=== PATIENT | male | born 1940 | race Caucasian/White ===

== ENCOUNTER 2020-02-07 11:12 | Inpatient (IN) ==
[2020-02-07] MEDS ORDERED: IOPAMIDOL 100 ML BOTTLE IV ONE (11:13)
[2020-02-07] MEDS ORDERED: 0.9 % SODIUM CHLORIDE 1,000 ML IV ONE (11:43)
--- NOTE | 2020-02-07 11:43 | Emergency Department Note ---
Nausea/Vomiting/Diarrhea HPI - General Chief complaint: Nausea/Vomiting/Diarrhea Stated complaint: Vomiting Time Seen by Provider: 02/07/20 11:31 Source: patient Mode of arrival: ambulatory Limitations: no limitations - History of Present Illness HPI Narrative: This 79-year old patient presents emergency department chief complaint of vomiting. Patient states vomiting has been going on for 1 days. Patient states exacerbating factors are eating/drinking. Patient states ameliorating factors are nothing. Time course is acute. Patient does not report fever however he is febrile on arrival. Patient has not had history of these symptoms in the past. Pt with out sick contacts. Associated symptoms do not include distention/hematemesis/feculent vomiting/sick contacts/vertigo. Associated symptoms include nausea/diarrhea/abdominal pain. - Related Data Home Medications Medication Instructions Recorded Confirmed Diltiazem HCl [Cartia Xt] 120 mg PO BID 02/07/20 02/07/20 Diltiazem [Cardizem Cd] 240 mg PO BID 02/07/20 02/07/20 Doxazosin Mesylate [Cardura] 1 mg PO HS 02/07/20 02/07/20 Nortriptyline [Pamelor] 10 mg PO HS 02/07/20 02/07/20 Potassium Chloride [Kdur] 10 meq PO DAILY 02/07/20 02/07/20 Sennosides [Senna Laxative] 8.6 mg PO DAILY 02/07/20 02/07/20 oxyCODONE HCL [Oxycodone HCl] 5 mg PO TID 02/07/20 02/07/20 Allergies Allergy/AdvReac Type Severity Reaction Status Date / Time No Known Drug Allergies Allergy Verified 02/07/20 11:29 Review of Systems All systems ED: reviewed and negative except as stated. Past Medical History - Social History smoking status: Never smoker Physical Exam General: Alert, interactive, appropriate, patient's vital signs were assessed for hemodynamic instability specifically tachycardia or hypotension pt is only febrile at presentation Head: Atraumatic, normocephalic Eyes: Extraocular movements intact, PERRLA OP: Mucous membranes were moist, there was no erythema or swelling Neck: Trachea midline, full range of motion Chest: Symmetrical chest wall rise Cardiovascular: Patient with excellent perfusion to the extremities Extremities: Full range of motion joints, warm well perfused Neuro: Alert, oriented x3, cranial nerves II through XII grossly intact Psychiatric: Normal affect normal mood Limitations: no limitations Course Vital Signs Temperature 102.7 F H 02/07/20 11:13 Pulse Rate 93 H 02/07/20 11:13 Respiratory Rate 16 02/07/20 11:13 Blood Pressure 171/69 02/07/20 11:13 Pulse Oximetry (%) 96 02/07/20 11:13 Temperature 98.1 F 02/07/20 20:47 Pulse Rate 62 02/07/20 20:47 Respiratory Rate 16 02/07/20 20:47 Blood Pressure 123/60 02/07/20 20:47 Pulse Oximetry (%) 93 02/07/20 20:47 Nausea/Vomiting/Diarrhea - [facility] Narrative Medical decision making narrative: This 79-year-old patient presents the emergency department chief complaint of vomiting. Differential diagnosis for this issue includes intra-abdominal infection, acute gastroenteritis, gastroparesis, GERD, cyclical vomiting syndrome, cannabinoid hyperemesis syndrome, pancreatitis, hepatitis, other rare causes could include gastric outlet obstruction, bowel obstruction, and self-induced/eating disorders. Evaluation for this vomiting patient is noted to have pneumonia. Patient's flu swab was negative. CT scan of the abdomen looking for possible intra-abdominal process revealed bottoms of the lungs showing infiltrate. Dedicated chest CT was obtained which demonstrated pneumonia. Patient was febrile patient was also confused patient does have elevation of his white blood cell count patient is 79 years old. Discussed case with Dr. Lael and the consensus medical opinion is to admit the patient for ongoing evaluation and management. Patient did have some wandering baseline on his oxygenation occasionally into the 80s but not consistent with a low to suggest he needed oxygen supplementation acutely. Patient treated with IV fluids Rocephin and azithromycin his lactate was right at 2.0. - Lab Data Result diagrams: 02/07/20 11:41 02/07/20 11:41 Lab Results 02/07/20 02/07/20 02/07/20 Range/Units 11:40 11:41 11:41 WBC 16.0 H (4.50-11.00) K/mcL RBC 4.59 L (4.63-6.08) M/mcL Hgb 13.6 L (13.7-17.5) g/dL Hct 42.0 (40.1-51.0) % POC Hct (41.0-55.0) % MCV 91.5 (80.0-100.0) fL MCH 29.6 (26.0-34.0) pg MCHC 32.4 (31.0-36.0) g/dL RDW 12.7 (11.5-14.5) % Plt Count 192 (140-440) K/mcL MPV 11.6 H (7.4-10.4) fL Gran % 92.0 H (38.0-78.0) % Lymph % (Auto) 2.9 L (15.5-49.0) % [place] % (Auto) 3.9 (1.0-12.0) % Eos % (Auto) 0.9 (0.0-7.0) % Baso % (Auto) 0.3 (0.0-2.0) % Gran # 14.71 H (1.80-8.00) K/mcL Lymph # (Auto) 0.46 L (1.50-4.80) K/mcL [place] # (Auto) 0.63 (0.10-0.90) K/mcL Eos # (Auto) 0.15 (0.00-0.70) K/mcL Baso # (Auto) 0.04 (0.00-0.30) K/mcL PT (11.9-14.5) sec INR (0.9-1.1) VBG Lactic Acid 2.0 (0.5-2.0) mmol/L POC Sodium (133-145) mmol/L Sodium 135 (133-145) mmol/L POC Potassium (3.3-5.1) mmol/L Potassium 4.4 (3.3-5.1) mmol/L POC Chloride (96-108) mmol/L Chloride 97 (96-108) mmol/L Carbon Dioxide 24 (22-30) mmol/L POC Total CO2 (22-30) mmol/L Anion Gap 14.0 (8-16) POC BUN (8-23) mg/dl BUN 22 (8-23) mg/dl Creatinine 1.3 H (0.7-1.2) mg/dl POC Creatinine (0.7-1.2) mg/dl GFR Calculation 52 Glucose 161 H (70-105) mg/dL POC Glucose (70-105) mg/dL Calcium 9.1 (8.6-10.4) mg/dl POC WB Ioniz Calcium (1.16-1.32) mmol/L Total Bilirubin 0.8 (0.0-1.0) mg/dL AST 33 (0-37) U/l ALT 18 (0-40) U/l Alkaline Phosphatase 117 (39-117) U/L Total Protein 7.6 (5.9-8.4) gm/dL Albumin 4.1 (3.2-5.2) gm/dL Globulin 3.5 (2.2-3.7) gm/dL Albumin/Globulin Ratio 1.2 (1.0-2.3) Lipase 9 (7-60) U/L Urine Color Urine Appearance Urine pH (5.0-9.0) Ur Specific [place] (1.000-1.035) Urine Protein (NEG) mg/dL Urine Glucose (UA) (NEG) mg/dL Urine Ketones (NEG) mg/dL Urine Occult Blood (<0.03) mg/dL Urine Nitrate (NEG) Urine Bilirubin (NEG) mg/dL Urine Urobilinogen (NEG) mg/dL Ur Leukocyte Esterase (NEG) /uL Urine RBC (0-1) /hpf Urine WBC (0-4) /hpf Ur Squamous Epith Cells (0-4) /hpf Urine Bacteria (0) /hpf Urine Mucus (0) /hpf 02/07/20 02/07/20 02/07/20 Range/Units 11:41 12:07 12:15 WBC (4.50-11.00) K/mcL RBC (4.63-6.08) M/mcL Hgb (13.7-17.5) g/dL Hct (40.1-51.0) % POC Hct 40.0 L (41.0-55.0) % MCV (80.0-100.0) fL MCH (26.0-34.0) pg MCHC (31.0-36.0) g/dL RDW (11.5-14.5) % Plt Count (140-440) K/mcL MPV (7.4-10.4) fL Gran % (38.0-78.0) % Lymph % (Auto) (15.5-49.0) % [place] % (Auto) (1.0-12.0) % Eos % (Auto) (0.0-7.0) % Baso % (Auto) (0.0-2.0) % Gran # (1.80-8.00) K/mcL Lymph # (Auto) (1.50-4.80) K/mcL [place] # (Auto) (0.10-0.90) K/mcL Eos # (Auto) (0.00-0.70) K/mcL Baso # (Auto) (0.00-0.30) K/mcL PT 37.3 H (11.9-14.5) sec INR 3.7 H (0.9-1.1) VBG Lactic Acid (0.5-2.0) mmol/L POC Sodium 138 (133-145) mmol/L Sodium (133-145) mmol/L POC Potassium 4.4 (3.3-5.1) mmol/L Potassium (3.3-5.1) mmol/L POC Chloride 104 (96-108) mmol/L Chloride (96-108) mmol/L Carbon Dioxide (22-30) mmol/L POC Total CO2 24 (22-30) mmol/L Anion Gap (8-16) POC BUN 22 (8-23) mg/dl BUN (8-23) mg/dl Creatinine (0.7-1.2) mg/dl POC Creatinine 1.2 (0.7-1.2) mg/dl GFR Calculation Glucose (70-105) mg/dL POC Glucose 144 H (70-105) mg/dL Calcium (8.6-10.4) mg/dl POC WB Ioniz Calcium 1.09 L (1.16-1.32) mmol/L Total Bilirubin (0.0-1.0) mg/dL AST (0-37) U/l ALT (0-40) U/l Alkaline Phosphatase (39-117) U/L Total Protein (5.9-8.4) gm/dL Albumin (3.2-5.2) gm/dL Globulin (2.2-3.7) gm/dL Albumin/Globulin Ratio (1.0-2.3) Lipase (7-60) U/L Urine Color Yellow Urine Appearance Clear Urine pH 6.0 (5.0-9.0) Ur Specific [place] 1.017 (1.000-1.035) Urine Protein Neg (NEG) mg/dL Urine Glucose (UA) Negative (NEG) mg/dL Urine Ketones Neg (NEG) mg/dL Urine Occult Blood 0.03 A (<0.03) mg/dL Urine Nitrate Neg (NEG) Urine Bilirubin Neg (NEG) mg/dL Urine Urobilinogen Neg (NEG) mg/dL Ur Leukocyte Esterase Neg (NEG) /uL Urine RBC 8 H (0-1) /hpf Urine WBC 2 (0-4) /hpf Ur Squamous Epith Cells 0 (0-4) /hpf Urine Bacteria 0 (0) /hpf Urine Mucus Few (0) /hpf Disposition Pt seen by NEWS PRODUCER/PA only: No Clinical Impression: Left lower lobe pneumonia Qualifiers: Pneumonia type: due to unspecified organism Qualified Code(s): J18.9 - Pneumonia, unspecified organism Disposition: Xfer As Inpt ([facility]) Condition: Serious
--- NOTE | 2020-02-07 12:06 | XRay Report ---
CLINICAL INFORMATION: CP/dyspnea COMPARISON: 03/14/2015 FINDINGS: Moderate cardiomegaly is increased. Mediastinum is unremarkable. Upper lobe pulmonary vessels show slight redistribution. No edema or infiltrates. Mild bibasilar atelectasis noted. No effusion IMPRESSION: Borderline CHF or volume overload. Mild bibasilar atelectasis Interpreted and Authenticated by: Shiva Chang 02/07/20
[2020-02-07 12:14] LABS: POC Blood Urea Nitrogen 22 mg/dl (8-23); POC CO2 24 mmol/L (22-30); POC Calcium, Ionized 1.09 mmol/L (1.16-1.32); POC Chloride 104 mmol/L (96-108); POC Creatinine 1.2 mg/dl (0.7-1.2); POC Glucose, Random 144 mg/dL (70-105); POC Potassium 4.4 mmol/L (3.3-5.1); POC Sodium 138 mmol/L (133-145)
[2020-02-07 12:28] LABS: Basophils # (Auto) 0.04 K/mcL (0.00-0.30); Basophils % (Auto) 0.3 % (0.0-2.0); Eosinophils # (Auto) 0.15 K/mcL (0.00-0.70); Eosinophils % (Auto) 0.9 % (0.0-7.0); Hemoglobin 13.6 g/dL (13.7-17.5); Lymphocytes # (Auto) 0.46 K/mcL (1.50-4.80); Lymphocytes % (Auto) 2.9 % (15.5-49.0); Mean Cell Volume 91.5 fL (80.0-100.0); Mean Corpuscular HGB Conc 32.4 g/dL (31.0-36.0); Mean Platelet Volume 11.6 fL (7.4-10.4); Monocytes # (Auto) 0.63 K/mcL (0.10-0.90); Monocytes % (Auto) 3.9 % (1.0-12.0); Platelet Count 192 K/mcL (140-440); RBC 4.59 M/mcL (4.63-6.08); Red Cell Distribution Width 12.7 % (11.5-14.5)
[2020-02-07 12:35] LABS: ALT/SGPT 18 U/l (0-40); AST/SGOT 33 U/l (0-37); Albumin 4.1 gm/dL (3.2-5.2); Albumin/Globulin Ratio 1.2 (1.0-2.3); Alkaline Phosphatase 117 U/L (39-117); Bilirubin,Total 0.8 mg/dL (0.0-1.0); Blood Urea Nitrogen 22 mg/dl (8-23); Calcium 9.1 mg/dl (8.6-10.4); Carbon Dioxide 24 mmol/L (22-30); Chloride 97 mmol/L (96-108); Globulin 3.5 gm/dL (2.2-3.7); Glomerular Filtration Rate 52; Glucose 161 mg/dL (70-105)
[2020-02-07 13:20] LABS: Appearance,Urine CLEAR; Bacteria,Urine 0 /hpf (0); Bilirubin,Urine NEG (NEG); Color,Urine YELLOW; Glucose,Urine (UA) NEGATIVE (NEG); Ketones,Urine NEG (NEG); Leukocyte Esterase,Urine NEG /uL (NEG); Mucus,Urine FEW /hpf (0); Nitrate,Urine NEG (NEG); Protein,Urine NEG (NEG); Specific Gravity,Urine 1.017 (1.000-1.035); Urine Blood 0.03 mg/dL (<0.03); Urine RBC 8 /hpf (0-1); Urine Squamous Epithelial Cell 0 /hpf (0-4); Urine WBC 2 /hpf (0-4); Urobilinogen,Urine NEG (NEG)
[2020-02-07] MEDS ORDERED: oxyCODONE/APAP 5/325MG TABLET PO ONE (14:08)
--- NOTE | 2020-02-07 14:11 | Cat Scan Report ---
CLINICAL INFORMATION: Abdominal pain and vomiting COMPARISON: 07/09/[address] TECHNIQUE: Following enteric contrast, 80 cc of Isovue-370 were injected intravenously, and 60 seconds later, 0.625 mm helical slices were obtained from the mid heart through the subtrochanteric regions. Following reconstruction, 2.5 mm sagittal, coronal and axial reformatted images were processed and reviewed at bone, lung and soft tissue windows. Five minutes later, 0.625 mm helical slices were obtained from the mid heart through the kidneys and viewed at soft tissue windows.The exam was performed using radiation dose optimization techniques including, but not limited to, automated exposure control, adjustment of the mA and/or kV according to patient size and use of iterative reconstruction technique. FINDINGS: Lung bases show a small consolidated infiltrate, likely community-acquired pneumonia, in the posterior basilar segment left lower lobe. This is new from prior CT. no effusions. The visualized heart is grossly normal. Abdominal images show minimal fatty change of the liver, but no focal hepatic lesions. The gallbladder is surgically absent. The common bile duct is moderately dilated, 12 mm, with mild wall thickening and enhancement of the duct epithelium in the papillary region. The common bile duct was only 10 mm on the [address] 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 The prior exam, there was a mass in the pancreatic tail which has been surgically resected. The pancreas shows marked atrophy with almost total fatty replacement of the parenchyma. Both kidneys, adrenal glands, spleen are normal. The aorta is normal diameter with scattered atherosclerotic plaque. 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 The SMA, MALENA, renal and iliac arteries are widely patent. Pelvic images show prostate is decreased in size from the 2015 study. Previously, it was 5.1 x 4.7 cm. On today's exam, it is 3.8 x 4.1 cm. A prominent frond hypertrophied prostate tissue projecting from the prostate base into the urinary bladder has also decreased since previous CT. Interval effusions wall thickening urinary bladder has decreased prior CT implying improvement in chronic bladder outlet narrowing. Scattered sigmoid diverticuli noted. The remaining colon and appendix, small bowel and stomach are normal. Undigested tablet seen within the cecum. There is a 6.4 cm right inguinal hernia containing mesenteric fat and a very short segment of the proximal sigmoid colon. There is also a 3 cm right internal hernia containing only mesenteric fat. Bone windows show no osseous abnormality there are L2-3 fusion changes which appear solid. A 3.2 cm seroma is seen within [place] fascia in the periumbilical region. Patient likely had hernia surgery. IMPRESSION: 1. Moderate infiltrate in the posterior left lower lobe - suspect community-acquired pneumonia. 2. No acute intra-abdominal disease 3. 6.4 cm left inguinal hernia containing mesenteric fat and a portion of the sigmoid colon slight increase in size from previous exam. A 3 cm right femoral hernia is unchanged 4. Sigmoid diverticulosis, but no evidence of diverticulitis. 5. 3.2 cm seroma in the anterior abdominal wall in [place] fascia midline. This is likely site of prior hernia repair 6. Mild prostate enlargement. The prostate has decreased in size from 2015 presumably related to atrophy from medication use. The urinary bladder wall has decreased in thickness suggesting improvement in chronic bladder outlet narrowing. 7. Moderate dilatation of the common bile duct with thickening and enhancement of the biliary epithelium near the papilla suggesting postcholecystectomy papillary stenosis. Duct diameter has increased from the [address] Consider GI referral for possible ERCP 8. 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 Pancreas now shows marked atrophy Interpreted and Authenticated by: Shiva Chang 02/07/20
--- NOTE | 2020-02-07 17:03 | Cat Scan Report ---
CLINICAL INFORMATION: Fever and elevated white blood cell count COMPARISON: 03/20/2015 CT pulmonary angiogram TECHNIQUE: 0.625 mm axial slices were obtained from the lung apices through the bases without intravenous contrast. 2.5 mm Sagittal, coronal and axial reformatted images were processed and reviewed at bone, lung and soft tissue windows. 7 mm axial MIP images were also reconstructed to optimize pulmonary nodule detection.The exam was performed using radiation dose optimization techniques including, but not limited to, automated exposure control, adjustment of the mA and/or kV according to patient size and use of iterative reconstruction technique. FINDINGS: Pulmonary parenchymal windows show moderate patchy groundglass alveolar infiltrates within the left lower lobe with smaller predominantly groundglass infiltrates in the right lower lobe. Findings are new from the [address] The right middle and upper lobes are clear. There are no effusions. Mediastinal windows show the noncontrast thoracic aorta and pulmonary arteries are normal in diameter. There is no adenopathy in the mediastinal hilar or axillary regions. Heart is normal in size with scattered calcific plaque. Esophagus is grossly normal. The thyroid is unremarkable. Bones and soft tissues of the chest wall are unremarkable. Imaging of the upper abdomen show small amount of residual contrast within the upper collecting systems the visualized kidneys. No other abnormality. IMPRESSION: Moderate patchy groundglass/alveolar infiltrates throughout the left lower lobe with smaller, predominantly groundglass, infiltrate in the right lower lobe. Consider infection or aspiration. Interpreted and Authenticated by: Shiva Chang 02/07/20
[2020-02-07] MEDS ORDERED: cefTRIAXone 1 GM VIAL IV ONE (18:53)
[2020-02-07] MEDS ORDERED: AZITHROMYCIN 500 MG in DEXTROSE 5% IN WATER 250 ML IV ONE (18:54)
--- NOTE | 2020-02-07 19:15 | Internal Med History&Physical ---
Medical - H&P: [facility] Patient information: Note initiated : 02/07/20 at 7:11 pm Service Date, if different from initiated Date: [] Patient: Andrés Santillan a 79 y/o M admitted on for Vomiting. Chief Complaint: [] Chief complaint: Nausea vomiting and confusion History of present illness: Mr. Santillan is a 79 year old M with a history of hypertension, chronic back pain presents to the ER with symptoms of nausea and vomiting that started 6 hours prior to presentation. Patient was in baseline state of health this morning. He was in the bathroom and suddenly started experience nausea followed by a large volume emesis. He had 3-4 episodes. He has associated abdominal discomfort but denies any fever shortness of breath headache joint pain myalgia or rash. He feels to the ER for evaluation. Initial work-up was unremarkable with abdominal CT except for basilar chest infiltrate and confirmed on subsequent CT chest left-sided diffuse pneumonia. Hospitalist service was consulted after patient was started on antibiotic coverage. Initial white count 16,000, INR 3.7 At the time evaluation patient is alert and oriented. He is on room air. He was able to answer most of the questions and talk in full sentences. He denies labored breathing, chest pain, diarrhea, bloody stool. He endorses to minimal abdominal discomfort. He denies recent travel or eating uncooked meat. Review of systems A 10 point review system was performed and is negative except for ones cussed above Medical - H&P: PMH Medical history: Chronic back pain Hypertension Degenerative joint disease Social history: Lives with his son No smoking or alcoholism Medical - H&P: Meds Home Medications Medication Instructions Recorded Confirmed Type Diltiazem HCl [Cartia Xt] 120 mg PO BID 02/07/20 02/07/20 History Diltiazem [Cardizem Cd] 240 mg PO BID 02/07/20 02/07/20 History Doxazosin Mesylate [Cardura] 1 mg PO HS 02/07/20 02/07/20 History Nortriptyline [Pamelor] 10 mg PO HS 02/07/20 02/07/20 History Potassium Chloride [Kdur] 10 meq PO DAILY 02/07/20 02/07/20 History Sennosides [Senna Laxative] 8.6 mg PO DAILY 02/07/20 02/07/20 History oxyCODONE HCL [Oxycodone HCl] 5 mg PO TID 02/07/20 02/07/20 History Allergies Allergy/AdvReac Type Severity Reaction Status Date / Time No Known Drug Allergies Allergy Verified 02/07/20 11:29 Medical - H&P: Exam - Constitutional Vitals: Temp Pulse Resp BP Pulse Ox 99.8 F H 68 16 125/71 88 L 02/07/20 17:46 02/07/20 19:01 02/07/20 11:13 02/07/20 19:01 02/07/20 19:01 General appearance: no acute distress Exam: Alert oriented Nonlabored breathing Head normocephalic Oral cavity dry No ear nose discharge Neck lymphadenopathy S1-S2 occasionally irregular, ESM grade 1 Diminished breath sounds bases Abdomen soft nontender, midline prior abdominal surgery scar No joint swelling erythema or cyanosis or clubbing No lymphedema Skin no suspicious lesion Psych alert cooperative Neuro nonfocal Medical - H&P: Reslt - Labs CBC & Chem 7: 02/08/20 05:52 02/08/20 05:52 Labs: Short CBC 02/07/20 Range/Units 11:41 WBC 16.0 H (4.50-11.00) K/mcL Hgb 13.6 L (13.7-17.5) g/dL Hct 42.0 (40.1-51.0) % Plt Count 192 (140-440) K/mcL BMP 02/07/20 11:41 Sodium 135 Potassium 4.4 Chloride 97 Carbon Dioxide 24 BUN 22 Creatinine 1.3 H Glucose 161 H Calcium 9.1 Liver Function 02/07/20 Range/Units 11:41 Total Bilirubin 0.8 (0.0-1.0) mg/dL AST 33 (0-37) U/l ALT 18 (0-40) U/l Alkaline Phosphatase 117 (39-117) U/L Albumin 4.1 (3.2-5.2) gm/dL Urine 02/07/20 Range/Units 12:15 Urine Color Yellow Urine Appearance Clear Urine pH 6.0 (5.0-9.0) Ur Specific [place] 1.017 (1.000-1.035) Urine Protein Neg (NEG) mg/dL Urine Glucose (UA) Negative (NEG) mg/dL Medical - H&P: A/P (1) Left lower lobe pneumonia Current visit: Yes Status: Acute * Left lower lobe [id number] versus aspiration. Antibiotic coverage/bronchodilators/pulmonary toilet * Sepsis secondary to above. Evidence of endorgan dysfunction with altered mental status. Continue management of primary etiology. Crystalloids/pancultures/antibiotic coverage * Acute change mental status secondary to sepsis endorgan dysfunction. Continue monitoring * Abdominal pain nausea vomiting-no clear etiology. Negative abdominal imaging. Continue monitoring. * Chronic back pain continue home dose oxycodone * Hypertension continue Cardizem * Anticoagulation on Coumadin. INR therapeutic * Full code Plan * Inpatient admission, PSI score over 100 * Sepsis management guidelines * Antibiotic coverage * PT OT nutrition support * Discharge planning
[2020-02-07 20:00] LABS: INR 3.7 (0.9-1.1); Prothrombin Time 37.3 sec (11.9-14.5)
[2020-02-07] MEDS ORDERED: ACETAMINOPHEN 650 MG/65 ML BOTTLE IV PRN (21:08)
[2020-02-07] MEDS ORDERED: POLYETHYLENE GLYCOL 3350 17 GM PACKET PO PRN (21:08)
[2020-02-07] MEDS ORDERED: hydrALAZINE 20 MG/ML VIAL IV PRN (21:08)
[2020-02-07] MEDS ORDERED: IPRATROPIUM/ALBUTEROL 3 ML AMPUL.NEB NEB PRN (21:08)
[2020-02-07] MEDS ORDERED: ONDANSETRON 4 MG/2 ML VIAL IV PRN (21:08)
[2020-02-07] MEDS ORDERED: guaiFENesin/CODEINE 10 ML UDC PO PRN (21:08)
[2020-02-07] MEDS ORDERED: ONDANSETRON 4 MG ODT TABLET SL PRN (21:08)
[2020-02-07] MEDS ORDERED: MAGNESIUM SULFATE 2 GM/50 ML BAG IV PRN (21:08)
[2020-02-07] MEDS ORDERED: POTASSIUM CHLORIDE 20 MEQ PACKET PO PRN (21:08)
[2020-02-07] MEDS ORDERED: BISACODYL 10 MG SUPP.RECT PR PRN (21:08)
[2020-02-07] MEDS ORDERED: METOPROLOL TARTRATE 5 MG/5 ML VIAL IV PRN (21:08)
[2020-02-07] MEDS: 0.9 % SODIUM CHLORIDE 1,000 ML IV SCH (22:40)
[2020-02-07] MEDS: 0.9 % SODIUM CHLORIDE 10 ML SYRINGE IV SCH (22:40)
[2020-02-07] MEDS: SENNOSIDES/DOCUSATE SODIUM 1 TAB TABLET PO SCH (22:41)
[2020-02-07] MEDS: DOCUSATE SODIUM 100 MG CAPSULE PO SCH (22:41)
[2020-02-07] MEDS: MELATONIN 3 MG TABLET PO PRN (22:43)
[2020-02-08] MEDS: 0.9 % SODIUM CHLORIDE 10 ML SYRINGE IV SCH ×3 (04:26→22:32)
[2020-02-08 07:38] LABS: Hematocrit 35.3 % (40.1-51.0); Hemoglobin 11.1 g/dL (13.7-17.5); Mean Cell Volume 92.7 fL (80.0-100.0); Mean Corpuscular HGB Conc 31.4 g/dL (31.0-36.0); Mean Platelet Volume 12.5 fL (7.4-10.4); Platelet Count 121 K/mcL (140-440); RBC 3.81 M/mcL (4.63-6.08); WBC 11.7 K/mcL (4.50-11.00)
[2020-02-08 08:13] LABS: Bilirubin,Direct < 0.2 mg/dL (0.0-0.3); Chloride 104 mmol/L (96-108)
[2020-02-08 08:18] LABS: ALT/SGPT 12 U/l (0-40); AST/SGOT 25 U/l (0-37); Albumin 3.1 gm/dL (3.2-5.2); Alkaline Phosphatase 85 U/L (39-117); Bilirubin,Total 0.6 mg/dL (0.0-1.0); Blood Urea Nitrogen 17 mg/dl (8-23); Calcium 8.3 mg/dl (8.6-10.4); Carbon Dioxide 24 mmol/L (22-30); Glomerular Filtration Rate 71; Glucose 83 mg/dL (70-105); Lactate Dehydrogenase 217 U/L (94-250); Phosphorous 3.1 mg/dL (2.7-4.5); Triglycerides 61 mg/dl (<150); Uric Acid 4.1 mg/dL (2.5-8.0)
[2020-02-08 08:29] LABS: Lymphocytes % 13 % (15-49); Monocytes % (Manual) 2 % (1-12); Platelet Estimate DECREASED (NORMAL); RBC Morphology NORMAL (NORMAL); Segmented Neutrophils % 85 % (38-78)
[2020-02-08] MEDS ORDERED: cefTRIAXone 2 GM VIAL ONE (08:49)
[2020-02-08] MEDS: cefTRIAXone 2 GM in DEXTROSE 5% IN WATER 50 ML IV SCH (09:01)
[2020-02-08] MEDS: MULTIVIT,THER IRON,CA,FA & MIN 1 TABLET PO SCH (09:02)
[2020-02-08] MEDS: THIAMINE 100 MG TABLET PO SCH (09:02)
[2020-02-08] MEDS: DOCUSATE SODIUM 100 MG CAPSULE PO SCH ×2 (09:02→21:18)
[2020-02-08] MEDS ORDERED: oxyCODONE HCL 5 MG TABLET PO ONE (10:15)
[2020-02-08] MEDS: ACETAMINOPHEN 325 MG TABLET PO PRN ×2 (10:17→23:37)
[2020-02-08] MEDS: oxyCODONE HCL 5 MG TABLET PO SCH ×3 (10:20→21:17)
[2020-02-08] MEDS: AZITHROMYCIN 500 MG in DEXTROSE 5% IN WATER 250 ML IV SCH (10:20)
[2020-02-08 11:53] LABS: INR 2.8 (0.9-1.1); Prothrombin Time 30.4 sec (11.9-14.5)
[2020-02-08] MEDS: DILTIAZEM 240 MG CAP.XL.24H PO SCH ×2 (13:09→21:17)
[2020-02-08] MEDS ORDERED: WARFARIN 2.5 MG TABLET PO SCH (14:00)
--- NOTE | 2020-02-08 15:28 | Internal Med Progress Note ---
Medical - PN: Subj Patient information: Note initiated : 02/08/20 at 3:18 pm Service Date, if different from initiated Date: [] Patient: Andrés Santillan a 79 y/o M admitted on 02/07/20 for Vomiting. Chief Complaint: [] Interval history: Mr. Santillan is a 79 year old M with a history of hypertension, chronic back pain presents to the ER with symptoms of nausea and vomiting that started 6 hours prior to presentation. Patient was in baseline state of health this morning. He was in the bathroom and suddenly started experience nausea followed by a large volume emesis. He had 3-4 episodes. He has associated abdominal discomfort but denies any fever shortness of breath headache joint pain myalgia or rash. He feels to the ER for evaluation. Initial work-up was unremarkable with abdominal CT except for basilar chest infiltrate and confirmed on subsequent CT chest left-sided diffuse pneumonia. Hospitalist service was consulted after patient was started on antibiotic coverage. Initial white count 16,000, INR 3.7 At the time evaluation patient is alert and oriented. He is on room air. He was able to answer most of the questions and talk in full sentences. He denies labored breathing, chest pain, diarrhea, bloody stool. He endorses to minimal abdominal discomfort. He denies recent travel or eating uncooked meat. 02/07-patient doing well. No overnight events. No concerns per staff. No fever chills nausea vomiting. Feels a lot better. Improved white count now at 11,000. Continue antibiotic coverage. Likely discharge home in 24 hours. Met son and a family friend this morning. Discussed clinical findings/treatment plan and possible discharge in 24 hours pending clinical improvement. Patient and family agreeable. - Constitutional Vitals: Vital Signs Temp Pulse Resp BP Pulse Ox 98.1 F 54 L 16 117/56 92 02/08/20 13:00 02/08/20 13:00 02/08/20 13:00 02/08/20 13:00 02/08/20 13:00 Period Temp Pulse Resp BP Sys/Chow Pulse Ox Last 24 Hr 98.1 F-99.8 F 54-72 16-20 98-153/43-71 88-97 Intake and Output 02/08/20 02/08/20 02/08/20 05:59 13:59 21:59 Intake Total 0 50 Output Total 150 200 Balance -150 -150 Weight 157 lb 11.2 oz Patient Weight 02/09/20 05:59 Weight 157 lb 11.2 oz Intake & Output: Intake & Output 02/08/20 02/08/20 02/08/20 05:59 13:59 21:59 Intake Total 0 50 Output Total 150 200 Balance -150 -150 Weight 157 lb 11.2 oz Intake: IV 50 Rocephin 2 gm In Dextrose 5% in 50 Water 50 ml @ 100 mls/hr IV Q24H [facility] Rx#:[id number] Oral 0 Output: Void Amount 150 200 Other: Urine Appearance Clear Urine Color Bright Yellow Urine Odor Normal # Voids 1 General appearance: no acute distress Exam: Alert oriented nonlabored breathing No anxiety Nondistended abdomen Medical - PN: Obj Da - Labs CBC & Chem 7: 02/08/20 05:52 02/08/20 05:52 Labs: Abnormal Lab Results 02/08/20 02/08/20 02/08/20 11:12 05:52 05:52 WBC 11.7 H RBC 3.81 L Hgb 11.1 L Hct 35.3 L POC Hct Plt Count 121 L MPV 12.5 H Gran % Lymph % (Auto) Gran # Lymph # (Auto) Seg Neutrophils % 85 H Lymphocytes % 13 L Platelet Estimate Decreased A PT 30.4 H INR 2.8 H Creatinine Glucose POC Glucose Calcium 8.3 L POC WB Ioniz Calcium GGT 88 H Albumin 3.1 L Urine Occult Blood Urine RBC 02/07/20 02/07/20 02/07/20 12:15 12:07 11:41 WBC RBC Hgb Hct POC Hct 40.0 L Plt Count MPV Gran % Lymph % (Auto) Gran # Lymph # (Auto) Seg Neutrophils % Lymphocytes % Platelet Estimate PT 37.3 H INR 3.7 H Creatinine Glucose POC Glucose 144 H Calcium POC WB Ioniz Calcium 1.09 L GGT Albumin Urine Occult Blood 0.03 A Urine RBC 8 H 02/07/20 02/07/20 11:41 11:41 WBC 16.0 H RBC 4.59 L Hgb 13.6 L Hct POC Hct Plt Count MPV 11.6 H Gran % 92.0 H Lymph % (Auto) 2.9 L Gran # 14.71 H Lymph # (Auto) 0.46 L Seg Neutrophils % Lymphocytes % Platelet Estimate PT INR Creatinine 1.3 H Glucose 161 H POC Glucose Calcium POC WB Ioniz Calcium GGT Albumin Urine Occult Blood Urine RBC Meds: Medications Acetaminophen (Tylenol) 650 mg PO Q4-6HP PRN; Protocol PRN Reason: Per Pain Protocol/Fever > 101 Last Admin: 02/08/20 10:17 Dose: 650 mg Documented by: Albuterol/Ipratropium (Duoneb) 3 ml NEB Q4HP PRN PRN Reason: Shortness Of Breath Bisacodyl (Dulcolax) 10 mg CA Q2-3DAYS PRN PRN Reason: Constipation Diltiazem HCl (Cardizem Cd) 240 mg PO BID [facility] Last Admin: 02/08/20 13:09 Dose: 240 mg Documented by: Docusate Sodium (Colace) 100 mg PO BID [facility] Last Admin: 02/08/20 09:02 Dose: 100 mg Documented by: Guaifenesin/Codeine Phosphate (Robitussin Ac) 10 ml PO Q4HP PRN PRN Reason: Cough Hydralazine HCl (Apresoline) 10 mg IV Q4-6HP PRN PRN Reason: Hypertension Sodium Chloride (Sodium Chloride 0.9%) 1,000 mls @ 50 mls/hr IV .Q20H [facility] Stop: 02/10/20 09:07 Last Admin: 02/07/20 22:40 Dose: 50 mls/hr Documented by: Acetaminophen (Ofirmev) 650 mg in 65 mls @ 130 mls/hr IV Q6HP PRN; Protocol PRN Reason: Per Pain Protocol/Fever > 101 Last Admin: 02/08/20 03:40 Dose: 130 mls/hr Documented by: Magnesium Sulfate (Magnesium Sulfate) 2 gm in 50 mls @ 50 mls/hr IV UD PRN PRN Reason: MG = or < 1.7 Ceftriaxone Sodium 2 gm/ (Dextrose) 50 mls @ 100 mls/hr IV Q24H [facility]; Protocol Last Infusion: 02/08/20 09:30 Dose: Infused Documented by: Azithromycin 500 mg/ Dextrose 250 mls @ 250 mls/hr IV Q24H [facility]; Protocol Stop: 02/10/20 10:59 Last Admin: 02/08/20 10:20 Dose: 250 mls/hr Documented by: Iron Carb/Multivit/[place]/Folic Acid (Multivitamin W/Minerals) 1 tab PO DAILY [facility] Last Admin: 02/08/20 09:02 Dose: 1 tab Documented by: Melatonin (Melatonin 3mg Tablet) 3 mg PO HSP PRN PRN Reason: Insomnia Last Admin: 02/07/20 22:43 Dose: 3 mg Documented by: Metoprolol Tartrate (Lopressor) 5 mg IV Q5M PRN PRN Reason: Heart Rate > 140 bpm Ondansetron HCl (Zofran Odt) 4 mg SL Q4-6HP PRN; Protocol PRN Reason: Nausea And Vomiting Ondansetron HCl (Zofran) 4 mg IV Q4-6HP PRN; Protocol PRN Reason: Nausea And Vomiting Oxycodone HCl (Roxicodone) 5 mg PO TID [facility]; Protocol Last Admin: 02/08/20 10:20 Dose: Not Given Documented by: Polyethylene Glycol (Miralax) 17 gm PO DAILYP PRN PRN Reason: Constipation Potassium Chloride (Klor-Con) 40 meq PO DAILYP PRN PRN Reason: K+ < 3.5 Senna/Docusate Sodium (Senna Plus Tablet) 1 tab PO HS [facility] Last Admin: 02/07/20 22:41 Dose: 1 tab Documented by: Sodium Chloride (Saline Flush) 10 ml IV Q8 [facility] Last Admin: 02/08/20 04:26 Dose: Not Given Documented by: Thiamine HCl (Vitamin B1) 100 mg PO DAILY [facility] Last Admin: 02/08/20 09:02 Dose: 100 mg Documented by: Warfarin Sodium (Coumadin Per Pharmacy) 1 order PO DAILY@1400 [facility] Warfarin Sodium (Coumadin) 2.5 mg PO TODAY@1400 [facility] Stop: 02/08/20 16:00 Medical - PN: A/P - Time Spent With Patient Total time spent is greater than 50% in coordination of care (as documented) at patient's floor/unit and/or counseling patient: 25 - 35 minutes (1) Left lower lobe pneumonia Status: Acute Assessment and plan: * Left lower lobe iyhpfskxx-rzmetgrji-vxhzbrcn versus aspiration. Clinical improvement noted on antibiotic coverage/bronchodilators/pulmonary toilet * Sepsis secondary to above. Clinically improved with downtrending white count. Improved mental status change. * Acute change in mental status resolved and back to baseline * Abdominal pain nausea vomiting-resolved. No clear etiology. Negative abdominal imaging. * Chronic back pain continue home dose oxycodone * Hypertension continue Cardizem * Anticoagulation on Coumadin. INR therapeutic * Full code Plan * Continue antibiotic coverage * Likely discharge in 24 hours * PT OT nutrition support Current Visit: Yes Medical - PN: Qual - VTE Deep Vein Thrombosis/Pulmonary Embolism Present on Admission: No
[2020-02-08] MEDS: 0.9 % SODIUM CHLORIDE 1,000 ML IV SCH ×2 (19:15→19:56)
[2020-02-08] MEDS: SENNOSIDES/DOCUSATE SODIUM 1 TAB TABLET PO SCH (21:17)
[2020-02-08] MEDS: MELATONIN 3 MG TABLET PO PRN (21:18)
[2020-02-09] MEDS: ACETAMINOPHEN 325 MG TABLET PO PRN (04:03)
[2020-02-09] MEDS: 0.9 % SODIUM CHLORIDE 10 ML SYRINGE IV SCH (05:00)
--- NOTE | 2020-02-09 06:38 | XRay Report ---
CLINICAL INFORMATION: Follow up CHF COMPARISON: 02/07/2020 FINDINGS: Heart as returned to normal in size. Mediastinum and pulmonary vessels are unremarkable. Lungs are clear. No effusions. IMPRESSION: Resolution CHF. Negative exam Interpreted and Authenticated by: Shiva Chang 02/09/20
[2020-02-09 06:46] LABS: Hematocrit 38.2 % (40.1-51.0); Hemoglobin 12.2 g/dL (13.7-17.5); Mean Cell Volume 91.6 fL (80.0-100.0); Mean Corpuscular HGB Conc 31.9 g/dL (31.0-36.0); Mean Platelet Volume 11.6 fL (7.4-10.4); Platelet Count 158 K/mcL (140-440); RBC 4.17 M/mcL (4.63-6.08); Red Cell Distribution Width 12.9 % (11.5-14.5); WBC 8.2 K/mcL (4.50-11.00)
[2020-02-09 07:27] LABS: INR 1.9 (0.9-1.1); Prothrombin Time 22.2 sec (11.9-14.5)
[2020-02-09 07:29] LABS: ALT/SGPT 11 U/l (0-40); AST/SGOT 24 U/l (0-37); Albumin 3.5 gm/dL (3.2-5.2); Albumin/Globulin Ratio 1.1 (1.0-2.3); Alkaline Phosphatase 86 U/L (39-117); Bilirubin,Direct < 0.2 mg/dL (0.0-0.3); Bilirubin,Total 0.5 mg/dL (0.0-1.0); Blood Urea Nitrogen 16 mg/dl (8-23); Calcium 8.6 mg/dl (8.6-10.4); Carbon Dioxide 24 mmol/L (22-30); Chloride 101 mmol/L (96-108); Globulin 3.1 gm/dL (2.2-3.7); Glomerular Filtration Rate 71; Glucose 91 mg/dL (70-105); Lactate Dehydrogenase 204 U/L (94-250); Phosphorous 3.1 mg/dL (2.7-4.5); Triglycerides 63 mg/dl (<150); Uric Acid 3.9 mg/dL (2.5-8.0)
[2020-02-09 08:20] LABS: Eosinophils % (Manual) 1 % (0-7); Lymphocytes % 20 % (15-49); Monocytes % (Manual) 3 % (1-12); Platelet Estimate NORMAL (NORMAL); RBC Morphology NORMAL (NORMAL); Segmented Neutrophils % 76 % (38-78)
--- NOTE | 2020-02-09 08:52 | Discharge Summary ---
Medical - DS: Prov Patient information: Note initiated : 02/09/20 at 8:51 am Service Date, if different from initiated Date: [] Patient: Andrés Santillan 79 y/o M admitted on 02/07/20 for Vomiting. Chief Complaint: [] Date of admission: 02/07/20 20:27 Discharge date: 02/09/20 Consults: 02/07/20 Consult to Physician [CONS] Stat Comment: Consulting Provider: Alvarado Lucas Reason For Exam: Physician to Consult Medical - DS: Meds - Discharge Medications Prescriptions: Cefdinir 300 mg PO BID #10 cap Transmission Status: Received by [facility] [address] [place] [address] Active and Home Medications: Home Medications Diltiazem [Cardizem Cd] 240 mg PO BID 02/07/20 [History Confirmed 02/07/20 Last Taken 02/06/20 08:00] Doxazosin Mesylate [Cardura] 1 mg PO HS 02/07/20 [History Confirmed 02/07/20 Last Taken Unknown] Nortriptyline [Pamelor] 10 mg PO HS 02/07/20 [History Confirmed 02/07/20 Last Taken 02/06/20 20:00] Potassium Chloride [Kdur] 10 meq PO DAILY 02/07/20 [History Confirmed 02/07/20 Last Taken 02/06/20 08:00] Sennosides [Senna Laxative] 8.6 mg PO DAILY 02/07/20 [History Confirmed 02/07/20 Last Taken 02/06/20 20:00] Finasteride [Proscar] 5 mg PO DAILY 02/08/20 [History Confirmed 02/08/20 Last Taken Unknown] Ondansetron [Zofran ODT] 4 mg SL Q4-6HP PRN 02/08/20 [History Confirmed 02/08/20 Last Taken Unknown] Simvastatin [Zocor] 20 mg PO Q48H 02/08/20 [History Confirmed 02/08/20 Last Taken Unknown] Warfarin [Coumadin] 5 mg PO .COMPLEX 02/08/20 [History Confirmed 02/08/20 Last Taken Unknown] Zolpidem [Ambien] 10 mg PO Q48H 02/08/20 [History Confirmed 02/08/20 Last Taken Unknown] fentaNYL [Duragesic] 100 mcg TOPICAL Q72H 02/08/20 [History Confirmed 02/08/20 Last Taken Unknown] oxyCODONE HCL [Oxycodone HCl] 20 mg PO TID 02/08/20 [History Confirmed 02/08/20 Last Taken Unknown] traZODone HCL [Desyrel] 50 mg PO HS 02/08/20 [History Confirmed 02/08/20 Last Taken Unknown] Cefdinir 300 mg PO BID #10 cap 02/09/20 [Rx Last Taken Unknown] Medical - DS: Hosp Hospital Course: Discharge diagnosis * Left lower lobe zuktxmjfy-vllhdxoyl-uoidvmpg clinically improved on antibiotic coverage/bronchodilators/pulmonary toilet * Sepsis secondary to above. Clinically improved with normalization of white count. Stable hemodynamics. Discharging on oral antibiotics * Acute change in mental status-clinically resolved * Abdominal pain nausea vomiting-clinically resolved no clear etiology. Negative abdominal imaging. * Chronic back pain continue home dose oxycodone * Hypertension continue Cardizem * Anticoagulation on Coumadin. INR therapeutic Brief hospital course Mr. Santillan is a 79 year old M with a history of hypertension, chronic back pain presents to the ER with symptoms of nausea and vomiting that started 6 hours prior to presentation. Patient was in baseline state of health this morning. He was in the bathroom and suddenly started experience nausea followed by a large volume emesis. He had 3-4 episodes. He has associated abdominal discomfort but denies any fever shortness of breath headache joint pain myalgia or rash. He feels to the ER for evaluation. Initial work-up was unremarkable with abdominal CT except for basilar chest infiltrate and confirmed on subsequent CT chest left-sided diffuse pneumonia. Hospitalist service was consulted after patient was started on antibiotic coverage. Initial white count 16,000, INR 3.7 At the time evaluation patient is alert and oriented. He is on room air. He was able to answer most of the questions and talk in full sentences. He denies labored breathing, chest pain, diarrhea, bloody stool. He endorses to minimal abdominal discomfort. He denies recent travel or eating uncooked meat. 02/07-patient doing well. No overnight events. No concerns per staff. No fever chills nausea vomiting. Feels a lot better. Improved white count now at 11,000. Continue antibiotic coverage. Likely discharge home in 24 hours. Met son and a family friend this morning. Discussed clinical findings/treatment plan and possible discharge in 24 hours pending clinical improvement. Patient and family agreeable. 02/08-patient doing well. No overnight events. No concerns per staff. Continue antibiotic for additional 5 days. Follow-up primary care physician in 5 to 7 days. Discharge diagnosis: . - Time Spent with Patient Total time spent providing and/or coordinating discharge services: Greater than 30 minutes Medical - DS: Exam - Constitutional Vitals: Vital Signs Temp Pulse Resp BP BP Pulse Ox 02/09/20 04:01 98.2 F 59 L 12 153/76 91 02/08/20 23:33 98.9 F 61 12 171/75 91 02/08/20 19:06 98.5 F 68 12 149/68 92 02/08/20 13:00 98.1 F 54 L 16 117/56 92 02/08/20 09:00 98.5 F 72 16 144/66 90 Intake and Output 02/08/20 02/09/20 02/09/20 21:59 05:59 13:59 Intake Total 1000 300 Output Total 525 125 Balance 475 175 Intake: IV 1000 Sodium Chloride 0.9% 1,000 ml @ 1000 50 mls/hr IV .Q20H [facility] Rx#: [id number] Oral 300 Output: Void Amount 525 125 Other: Urine Appearance Clear Urine Color Bright Yellow Urine Odor Normal Weight 155 lb 9.6 oz Medical - DS: Data Labs on day of discharge: Labs from last 24 hours 02/09/20 02/09/20 02/09/20 05:13 05:13 05:13 WBC 8.2 RBC 4.17 L Hgb 12.2 L Hct 38.2 L MCV 91.6 MCH 29.3 MCHC 31.9 RDW 12.9 Plt Count 158 MPV 11.6 H Total Counted 100 Seg Neutrophils % 76 Band Neutrophils % Not Reportable Lymphocytes % 20 Monocytes % (Manual) 3 Eosinophils % (Manual) 1 Platelet Estimate Normal RBC Morphology Normal PT 22.2 H INR 1.9 H Sodium 137 Potassium 4.1 Chloride 101 Carbon Dioxide 24 Anion Gap 12.0 BUN 16 Creatinine 1.0 GFR Calculation 71 Glucose 91 Uric Acid 3.9 Calcium 8.6 Phosphorus 3.1 Magnesium 1.9 Total Bilirubin 0.5 Direct Bilirubin < 0.2 GGT 88 H AST 24 ALT 11 Alkaline Phosphatase 86 Lactate Dehydrogenase 204 Total Protein 6.6 Albumin 3.5 Globulin 3.1 Albumin/Globulin Ratio 1.1 Triglycerides 63 02/08/20 11:12 WBC RBC Hgb Hct MCV MCH MCHC RDW Plt Count MPV Total Counted Seg Neutrophils % Band Neutrophils % Lymphocytes % Monocytes % (Manual) Eosinophils % (Manual) Platelet Estimate RBC Morphology PT 30.4 H INR 2.8 H Sodium Potassium Chloride Carbon Dioxide Anion Gap BUN Creatinine GFR Calculation Glucose Uric Acid Calcium Phosphorus Magnesium Total Bilirubin Direct Bilirubin GGT AST ALT Alkaline Phosphatase Lactate Dehydrogenase Total Protein Albumin Globulin Albumin/Globulin Ratio Triglycerides Preliminary micro results at discharge 02/07/20 11:55 Blood Culture - Preliminary Blood 02/07/20 11:50 Blood Culture - Preliminary Blood Medical - DS: A/P - Patient/Caregiver Discharge Instructions Activity: increase activity as tolerated Diet: Regular Diet Additional Instructions: Abx for 5 days f/u PCP in 7 days Prescriptions: Cefdinir 300 mg PO BID #10 cap Transmission Status: Received by [facility] - Problem Maintenance (1) Left lower lobe pneumonia Status: Acute Qualifiers: Pneumonia type: due to unspecified organism Qualified Code(s): J18.9 - Pneumonia, unspecified organism - Follow up Plan Disposition: Home, Self-Care Prognosis: Fair Rehab Potential: Fair I certify that the patient requires SNF services: No Overall status at discharge: patient is progressing back to baseline Medical - DS: Qual - VTE Deep Vein Thrombosis/Pulmonary Embolism Present on Admission: No
[2020-02-09] MEDS: oxyCODONE HCL 5 MG TABLET PO SCH (09:14)
[2020-02-09] MEDS: cefTRIAXone 2 GM in DEXTROSE 5% IN WATER 50 ML IV SCH (09:14)
[2020-02-09] MEDS: MULTIVIT,THER IRON,CA,FA & MIN 1 TABLET PO SCH (09:15)
[2020-02-09] MEDS: THIAMINE 100 MG TABLET PO SCH (09:15)
[2020-02-09] MEDS: DOCUSATE SODIUM 100 MG CAPSULE PO SCH (09:15)
[2020-02-09] MEDS: DILTIAZEM 240 MG CAP.XL.24H PO SCH (09:15)
[2020-02-09] MEDS: AZITHROMYCIN 500 MG in DEXTROSE 5% IN WATER 250 ML IV SCH (09:54)
[2020-02-09] MEDS ORDERED: WARFARIN 5 MG TABLET PO SCH (14:00)
== END 2020-02-09 11:20 | disposition home or self-care (01) | DRG 871 ==
LOC: ED 11:12 → MEDSUR 20:27
PROVIDERS: ADMIT Internal Medicine; ATTEND Internal Medicine

== ENCOUNTER 2021-08-20 18:10 | Inpatient (IN) ==
--- NOTE | 2021-08-20 18:23 | Emergency Department Note ---
HPI General Chief complaint: Fever Stated complaint: weakness/fever Time Seen by Provider: 08/20/21 18:22 Source: patient Mode of arrival: EMS Limitations: no limitations History of Present Illness HPI Narrative: Narrative: The patient is an 81-year-old male who presents with a chief complaint of cough and fever. The patient states that he did receive both doses of his Covid vaccine but did not receive a flu vaccine. Related Data Home Medications Medication Instructions Recorded Confirmed diltiazem HCl 240 mg PO BID 02/07/20 02/07/20 doxazosin 1 mg PO HS 02/07/20 02/07/20 nortriptyline 10 mg PO HS 02/07/20 02/07/20 potassium chloride 10 meq PO DAILY 02/07/20 02/07/20 sennosides 8.6 mg PO DAILY 02/07/20 02/07/20 fentanyl 100 mcg TOPICAL Q72H 02/08/20 02/08/20 finasteride 5 mg PO DAILY 02/08/20 02/08/20 ondansetron 4 mg SL Q4-6HP PRN 02/08/20 02/08/20 oxycodone 20 mg PO TID 02/08/20 02/08/20 simvastatin 20 mg PO Q48H 02/08/20 02/08/20 trazodone 50 mg PO HS 02/08/20 02/08/20 warfarin 5 mg PO .COMPLEX 02/08/20 02/08/20 zolpidem 10 mg PO Q48H 02/08/20 02/08/20 Previous Rx's Medication Instructions Recorded cefdinir 300 mg PO BID #10 cap 02/09/20 Allergies Allergy/AdvReac Type Severity Reaction Status Date / Time No Known Drug Allergies Allergy Verified 08/20/21 18:20 Review of Systems ROS ROS Narrative: Narrative: All systems ED: reviewed and negative except as stated. [facility] Narrative Patient History Narrative: Narrative: Medical/Surgical/Family History All Active Problems (Updated 08/20/21 @ 21:57 by Braeden Almendarez MD) Delirium (Acute) Atrial fibrillation (Acute) BPH (benign prostatic hyperplasia) (Acute) Stage 1 acute kidney injury (Acute) Community acquired pneumonia (Acute) Left lower lobe pneumonia (Acute) Pneumonia (Acute) Influenza B (Acute) RADHA (acute kidney injury) (Acute) Social History Smoking Status: Former smoker Exam Narrative Narrative: Narrative: General Limitations: no limitations General appearance: Present alert Head Head: Present atraumatic and normocephalic Eye Eye: Present normal appearance, PERRL and EOMI ENT ENT: Present normal exam, normal oropharynx and mucous membranes moist Neck Neck: Present normal inspection, full ROM and trachea midline Chest Chest: Present normal inspection and symmetric chest wall rise Respiratory Respiratory: Present normal lung sounds bilaterally Cardiovascular Cardiovascular: Present regular rate and normal rhythm Adbominal Abdominal: Present soft and normal bowel sounds; Absent tenderness, guarding, rebound and organomegaly Extremities Extremities: Present normal inspection and full ROM; Absent tenderness Back Back: Present normal inspection and full ROM; Absent tenderness Neurological Neurological: Present alert, oriented X3, CN II-XII intact, normal gait, motor sensory deficit and reflexes normal Psychiatric Psychiatric: Present normal affect Skin Skin: Present warm (WNL); Absent rash Course Course Course Narrative: Patient's chest x-ray shows right lower lobe pneumonia. He is hypoxic on arrival is 86% on room air he is on 4 L of oxygen at 96%. He is also flu be positive. Patient will require admission. EKG shows a rate of 58, normal axis, no STEMI, nonspecific EKG. Vital Signs Vital signs: Vital Signs Temperature 102.5 F H 08/20/21 18:11 Pulse Rate 71 08/20/21 18:11 Respiratory Rate 14 08/20/21 18:11 Blood Pressure 105/73 08/20/21 18:11 Pulse Oximetry (%) 87 L 08/20/21 18:11 Temperature 102.5 F H 08/20/21 18:11 Pulse Rate 55 L 08/20/21 21:22 Respiratory Rate 17 08/20/21 21:22 Blood Pressure 79/58 08/20/21 21:22 Pulse Oximetry (%) 92 08/20/21 21:22 [facility] MDM Narrative Medical decision making narrative: Narrative: I spoke with the hospitalist, Dr. Almendarez, who has agreed to admit this patient. Lab Data Result diagrams: 08/20/21 19:50 08/20/21 19:50 Labs: Lab Results 08/20/21 08/20/21 08/20/21 Range/Units 19:40 19:50 19:50 WBC 9.6 (4.5-11.0) K/mcL RBC 4.68 (4.63-6.08) M/mcL Hgb 14.0 (13.7-17.5) g/dL Hct 42.2 (40.1-51.0) % MCV 90.2 (80.0-100.0) fL MCH 29.9 (26.0-34.0) pg MCHC 33.2 (31.0-36.0) g/dL RDW 13.0 (11.5-14.5) % Plt Count 202 (140-440) K/mcL MPV 10.3 (7.4-10.4) fL Neut % (Auto) 82.1 H (38.0-78.0) % Lymph % (Auto) 11.5 L (15.5-49.0) % [place] % (Auto) 5.9 (1.0-12.0) % Eos % (Auto) 0.1 (0.0-7.0) % Baso % (Auto) 0.4 (0.0-2.0) % Lymph # (Auto) 1.11 L (1.50-4.80) K/mcL [place] # (Auto) 0.57 (0.10-0.90) K/mcL Eos # (Auto) 0.01 (0.00-0.70) K/mcL Baso # (Auto) 0.04 (0.00-0.30) K/mcL Absolute Neutrophils 7.90 (1.80-8.00) K/mcL PT 30.1 H (11.9-14.5) sec INR 2.7 H (0.9-1.1) APTT 42.5 H (20.0-37.0) sec VBG Lactic Acid 1.0 (0.5-2.0) mmol/L Sodium (133-145) mmol/L Potassium (3.3-5.1) mmol/L Chloride (96-108) mmol/L Carbon Dioxide (22-30) mmol/L Anion Gap (8.0-16.0) BUN (8-23) mg/dL Creatinine (0.7-1.2) mg/dL GFR Calculation Glucose (70-105) mg/dL Calcium (8.6-10.4) mg/dL Magnesium (1.6-2.5) mg/dL Total Bilirubin (0.1-1.0) mg/dL AST (<40) U/L ALT (<40) U/L Alkaline Phosphatase (39-117) U/L Total Creatine Kinase (24-195) U/L Troponin T (<0.03) ng/mL NT-Pro-B Natriuret Pep (<450.0) pg/mL Total Protein (5.9-8.4) gm/dL Albumin (3.2-5.2) gm/dL Globulin (2.2-3.7) gm/dL Albumin/Globulin Ratio (1.0-2.3) Lipase (7-60) U/L Procalcitonin (<0.10) ng/mL 08/20/21 08/20/21 08/20/21 Range/Units 19:50 19:50 19:50 WBC (4.5-11.0) K/mcL RBC (4.63-6.08) M/mcL Hgb (13.7-17.5) g/dL Hct (40.1-51.0) % MCV (80.0-100.0) fL MCH (26.0-34.0) pg MCHC (31.0-36.0) g/dL RDW (11.5-14.5) % Plt Count (140-440) K/mcL MPV (7.4-10.4) fL Neut % (Auto) (38.0-78.0) % Lymph % (Auto) (15.5-49.0) % [place] % (Auto) (1.0-12.0) % Eos % (Auto) (0.0-7.0) % Baso % (Auto) (0.0-2.0) % Lymph # (Auto) (1.50-4.80) K/mcL [place] # (Auto) (0.10-0.90) K/mcL Eos # (Auto) (0.00-0.70) K/mcL Baso # (Auto) (0.00-0.30) K/mcL Absolute Neutrophils (1.80-8.00) K/mcL PT (11.9-14.5) sec INR (0.9-1.1) APTT (20.0-37.0) sec VBG Lactic Acid (0.5-2.0) mmol/L Sodium 140 (133-145) mmol/L Potassium 4.4 (3.3-5.1) mmol/L Chloride 104 (96-108) mmol/L Carbon Dioxide 22 (22-30) mmol/L Anion Gap 14.0 (8.0-16.0) BUN 29 H (8-23) mg/dL Creatinine 2.0 H (0.7-1.2) mg/dL GFR Calculation 30 Glucose 124 H (70-105) mg/dL Calcium 8.6 (8.6-10.4) mg/dL Magnesium 1.9 (1.6-2.5) mg/dL Total Bilirubin 0.4 (0.1-1.0) mg/dL AST 32 (<40) U/L ALT 9 (<40) U/L Alkaline Phosphatase 105 (39-117) U/L Total Creatine Kinase 769 H (24-195) U/L Troponin T 0.02 (<0.03) ng/mL NT-Pro-B Natriuret Pep 975.2 H (<450.0) pg/mL Total Protein 6.9 (5.9-8.4) gm/dL Albumin 3.4 (3.2-5.2) gm/dL Globulin 3.5 (2.2-3.7) gm/dL Albumin/Globulin Ratio 1.0 (1.0-2.3) Lipase 15 (7-60) U/L Procalcitonin 0.10 H (<0.10) ng/mL ED POC Tests ED POC Tests: DIOR - Influenza A Negative DIOR - Influenza B Positive DIOR - SARS Antigen Negative Discharge Plan Patient/Caregiver Discharge Instructions Pt seen by [employer]/PA only: No Clinical Impression: Influenza B, RADHA (acute kidney injury) Pneumonia Qualifiers: Pneumonia type: due to unspecified organism Laterality: right Lung location: lower lobe of lung Qualified Code(s): J18.9 - Pneumonia, unspecified organism Patient Disposition: Xfer As Inpt ([facility]) Condition: Serious Follow up with: Nicola Canseco DO [Primary Care Provider] - Prescriptions: No Action sennosides 8.6 MG tablet 8.6 mg PO DAILY RF: 0 doxazosin 1 MG tablet 1 mg PO HS RF: 0 diltiazem HCl 240 MG capsule,extended release 24hr 240 mg PO BID RF: 0 potassium chloride 10 MEQ tablet 10 meq PO DAILY RF: 0 nortriptyline 10 MG capsule 10 mg PO HS RF: 0 fentanyl 100 MCG patch 100 mcg topical Q72H RF: 0 simvastatin 20 MG tablet 20 mg PO Q48H RF: 0 warfarin 5 MG tablet 5 mg PO .COMPLEX RF: 0 zolpidem 10 MG tablet 10 mg PO Q48H RF: 0 ondansetron 4 MG tablet 4 mg SL Q4-6HP PRN (Reason: Nausea) RF: 0 finasteride 5 MG tablet 5 mg PO DAILY RF: 0 oxycodone 20 MG tablet 20 mg PO TID RF: 0 trazodone 50 MG tablet 50 mg PO HS RF: 0 cefdinir 300 MG capsule 300 mg PO BID Qty: 10 RF: 0
--- NOTE | 2021-08-20 18:57 | XRay Report ---
INDICATION: cough fever TECHNIQUE: AP portable semiupright chest x-ray COMPARISON: Previous chest x-rays dated 02/09/2020, 02/07/2020 FINDINGS: Lungs:Right-sided infiltrates are predominantly peripheral. Left lung is clear. Infiltrates are nonspecific but consistent with pneumonia and covid pneumonia is possible Heart, vascular:No significant cardiomegaly. Pulmonary vascularity is normal. No pulmonary edema or pulmonary congestion Mediastinum, crissy:No mediastinal widening. No hilar mass Pleura:No pleural fluid. No pleural-based mass or calcification Skeletal:Negative. IMPRESSION: 1. Right-sided pulmonary parenchymal infiltrates 2. Findings are consistent with pneumonia and covid pneumonia is possible Interpreted and Authenticated by: Shiva Baird 08/20/21
[2021-08-20] MEDS ORDERED: DEXAMETHASONE 10 MG/ML VIAL IV ONE (19:13)
[2021-08-20] MEDS ORDERED: OSELTAMIVIR PHOSPHATE 75 MG CAPSULE PO ONE (19:13)
[2021-08-20] MEDS ORDERED: 0.9 % SODIUM CHLORIDE 1,000 ML IV ONE ×2 (19:13→20:52)
[2021-08-20] MEDS ORDERED: AZITHROMYCIN 500 MG in DEXTROSE 5% IN WATER 250 ML IV ONE (19:13)
[2021-08-20] MEDS ORDERED: cefTRIAXone 1 GM in DEXTROSE 5% IN WATER 50 ML IV SCH ×3 (19:15→23:22)
[2021-08-20 20:38] LABS: Basophils # (Auto) 0.04 K/mcL (0.00-0.30); Basophils % (Auto) 0.4 % (0.0-2.0); Eosinophils # (Auto) 0.01 K/mcL (0.00-0.70); Eosinophils % (Auto) 0.1 % (0.0-7.0); Hematocrit 42.2 % (40.1-51.0); Lymphocytes # (Auto) 1.11 K/mcL (1.50-4.80); Lymphocytes % (Auto) 11.5 % (15.5-49.0); Mean Cell Volume 90.2 fL (80.0-100.0); Mean Corpuscular HGB Conc 33.2 g/dL (31.0-36.0); Mean Platelet Volume 10.3 fL (7.4-10.4); Monocytes # (Auto) 0.57 K/mcL (0.10-0.90); Monocytes % (Auto) 5.9 % (1.0-12.0); Neutrophils % (Auto) 82.1 % (38.0-78.0); Platelet Count 202 K/mcL (140-440); RBC 4.68 M/mcL (4.63-6.08); WBC 9.6 K/mcL (4.5-11.0)
[2021-08-20 20:52] LABS: INR 2.7 (0.9-1.1); Partial Thromboplastin Time 42.5 sec (20.0-37.0); Prothrombin Time 30.1 sec (11.9-14.5)
[2021-08-20 21:02] LABS: proBNP 975.2 pg/mL (<450.0)
[2021-08-20 21:04] LABS: ALT/SGPT 9 U/L (<40); AST/SGOT 32 U/L (<40); Albumin 3.4 gm/dL (3.2-5.2); Alkaline Phosphatase 105 U/L (39-117); Bilirubin,Total 0.4 mg/dL (0.1-1.0); Blood Urea Nitrogen 29 mg/dL (8-23); Calcium 8.6 mg/dL (8.6-10.4); Carbon Dioxide 22 mmol/L (22-30); Chloride 104 mmol/L (96-108); Creatine Kinase 769 U/L (24-195); Globulin 3.5 gm/dL (2.2-3.7); Glomerular Filtration Rate 30; Glucose 124 mg/dL (70-105)
--- NOTE | 2021-08-20 21:53 | Internal Med History&Physical ---
HPI History of Present Illness Patient information: Note initiated : 08/20/21 at 9:50 pm Service Date, if different from initiated Date: [] Patient: Andrés Santillan a 81 y/o M admitted on for weakness/fever. Chief Complaint: [community acquired pneumonia and influenza B] History of present illness: Mr. Santillan is a 81 year old M history of atrial fibrillation's on anticoagulation therapy, BPH, presenting with 1 day history of altered mental status and general body weakness. Patient is vaccinated against Covid pneumonia. Patient is not vaccinated against influenza. Patient denies any recent travel or sick contact. Patient was in his usual state of health until earlier this morning when he was told by his family that he had acute onset altered mental status. He is also committing of general body weakness. He denies any shortness of breath. He denies any cough sputum production or respiratory wheezings. He denies any fever, shaking chills, or diaphoresis. He denies any change in appetite. He denies any GI symptoms such as nausea, vo miting, diarrhea, or constipation's. He denies any muscle cramps or muscle aches. He denies any headaches or lightheadedness. Vital signs at ED presentation significant for oxygen saturations in the high 80s on room air, as well as soft blood pressure 70s over 50s mmHg. labs significant for lack of leukocytosis with WBC 9.6. Serum lactic acid 1.0. Serum creatinine level 2.0 with baseline 1.0. Covid screening negative. Influenza B positive. Chest x- ray significant for right-sided pulmonary infiltrates. Constitutional Constitutional: Present weakness; Absent chills, excessive sweating, fatigue and fever(s) EENT Eyes: Absent blurry vision, change in vision, loss of vision and other visual disturbances Ears: Absent decreased hearing and tinnitus Nose, mouth and throat: Absent abnormal hearing, dry mouth, headache(s), nasal congestion and sore throat Cardiovascular Cardiovascular: Absent chest pain, chest pain at rest, edema, irregular heart rhythm and palpatations Respiratory Respiratory: Absent cough, dyspnea and wheezing Gastrointestinal Gastrointestinal: Absent abdominal pain, constipation, diarrhea, nausea and vomiting Musculoskeletal Musculoskeletal: Absent back pain, deformity, limited range of motion, muscle cramps, muscle weakness and numbness Integumentary Integumentary: Absent lesions, rash and wounds Neurological Neurological: Absent focal weakness, headache(s) and numbness Additional comments: altered mental status Psychiatric Psychiatric: Absent anxiety, depression and hallucinations PFSH PFSH All Active Problems (Updated 08/20/21 @ 21:57 by Braeden Almendarez MD) Delirium (Acute) Atrial fibrillation (Acute) BPH (benign prostatic hyperplasia) (Acute) Stage 1 acute kidney injury (Acute) Community acquired pneumonia (Acute) Left lower lobe pneumonia (Acute) Pneumonia (Acute) Influenza B (Acute) RADHA (acute kidney injury) (Acute) MEDS/ALLERGIES Home Medications and Allergies Home Medications Medication Instructions Recorded Confirmed Type diltiazem HCl 240 mg PO BID 02/07/20 02/07/20 History doxazosin 1 mg PO HS 02/07/20 02/07/20 History nortriptyline 10 mg PO HS 02/07/20 02/07/20 History potassium chloride 10 meq PO DAILY 02/07/20 02/07/20 History sennosides 8.6 mg PO DAILY 02/07/20 02/07/20 History fentanyl 100 mcg TOPICAL Q72H 02/08/20 02/08/20 History finasteride 5 mg PO DAILY 02/08/20 02/08/20 History ondansetron 4 mg SL Q4-6HP PRN 02/08/20 02/08/20 History oxycodone 20 mg PO TID 02/08/20 02/08/20 History simvastatin 20 mg PO Q48H 02/08/20 02/08/20 History trazodone 50 mg PO HS 02/08/20 02/08/20 History warfarin 5 mg PO .COMPLEX 02/08/20 02/08/20 History zolpidem 10 mg PO Q48H 02/08/20 02/08/20 History cefdinir 300 mg PO BID #10 cap 02/09/20 Rx Allergies Allergy/AdvReac Type Severity Reaction Status Date / Time No Known Drug Allergies Allergy Verified 08/20/21 18:20 EXAM Constitutional Vitals: Temp Pulse Resp BP Pulse Ox 39.2 C H 55 L 17 79/58 92 08/20/21 18:11 08/20/21 21:22 08/20/21 21:22 08/20/21 21:22 08/20/21 21:22 General appearance: cooperative and no acute distress Head Head exam: Present atraumatic and normocephalic Eye Eye exam: Present EOMI and PERRL ENT ENT exam: Present mucous membranes moist, normal exam and normal external ear exam Additional comments: Nasal cannula Neck Neck exam: Present normal inspection; Absent lymphadenopathy, tenderness and thyromegaly Respiratory Respiratory exam: Present rhonchi; Absent accessory muscle use, respiratory distress and wheezes Cardiovascular Cardiovascular exam: Present bradycardia and irregular rhythm; Absent JVD GI/Abdominal GI/Abdominal exam: Present normal bowel sounds and soft; Absent organomegaly and tenderness Rectal Rectal exam: Present deferred Extremities Exam Extremities exam: Present full ROM, normal capillary refill and normal inspection; Absent tenderness Neurological Exam Neurological exam: Present alert, CN II-XII intact and oriented X3; Absent motor sensory deficit Psychiatric Psychiatric exam: Present normal affect and normal mood; Absent anxious and depressed Skin Skin exam: Present dry and intact DATA Data Completed and Pending Labs: Labs from last 24 hours 08/20/21 08/20/21 08/20/21 19:50 19:50 19:50 WBC RBC Hgb Hct MCV MCH MCHC RDW Plt Count MPV Neut % (Auto) Lymph % (Auto) Gage % (Auto) Eos % (Auto) Baso % (Auto) Lymph # (Auto) Gage # (Auto) Eos # (Auto) Baso # (Auto) Absolute Neutrophils PT INR APTT VBG Lactic Acid Sodium 140 Potassium 4.4 Chloride 104 Carbon Dioxide 22 Anion Gap 14.0 BUN 29 H Creatinine 2.0 H GFR Calculation 30 Glucose 124 H Calcium 8.6 Magnesium 1.9 Total Bilirubin 0.4 AST 32 ALT 9 Alkaline Phosphatase 105 Total Creatine Kinase 769 H Troponin T 0.02 NT-Pro-B Natriuret Pep 975.2 H Total Protein 6.9 Albumin 3.4 Globulin 3.5 Albumin/Globulin Ratio 1.0 Lipase 15 Procalcitonin 0.10 H 08/20/21 08/20/21 08/20/21 19:50 19:50 19:40 WBC 9.6 RBC 4.68 Hgb 14.0 Hct 42.2 MCV 90.2 MCH 29.9 MCHC 33.2 RDW 13.0 Plt Count 202 MPV 10.3 Neut % (Auto) 82.1 H Lymph % (Auto) 11.5 L Gage % (Auto) 5.9 Eos % (Auto) 0.1 Baso % (Auto) 0.4 Lymph # (Auto) 1.11 L Gage # (Auto) 0.57 Eos # (Auto) 0.01 Baso # (Auto) 0.04 Absolute Neutrophils 7.90 PT 30.1 H INR 2.7 H APTT 42.5 H VBG Lactic Acid 1.0 Sodium Potassium Chloride Carbon Dioxide Anion Gap BUN Creatinine GFR Calculation Glucose Calcium Magnesium Total Bilirubin AST ALT Alkaline Phosphatase Total Creatine Kinase Troponin T NT-Pro-B Natriuret Pep Total Protein Albumin Globulin Albumin/Globulin Ratio Lipase Procalcitonin A/P Assessment and plan (1) Influenza B: Status: Acute (2) Community acquired pneumonia: Status: Acute (3) Stage 1 acute kidney injury: Status: Acute (4) BPH (benign prostatic hyperplasia): Status: Acute (5) Atrial fibrillation: Status: Acute (6) Delirium: Status: Acute Narrative A/P Narrative: Assessment and plan: 1. Community-acquired pneumonia s influenza B with associated acute delirium: Admit to inpatient MedSurg Lactic acid Procalcitonin Blood culture Covid PCR Isolation protocol: Airborne and contact until Covid PCR negative Supplemental oxygen therapy titrate to achieve SPO2 above or equal to 92% Tamiflu Rocephin Zithromax Status post IV fluid boluses in the ED, to be followed by IV NS at 100 cc/h CBC with auto differential in the morning to trend WBC Tylenol as needed fever Robitussin-DM as needed cough DuoNeb nebulizer as needed wheezing Frequent reorientation's and protected sleep time at night in addition to treatment of the infections to help patient recover from delirium 2. History of atrial fibrillation: Hold diltiazem in face of bradycardia and soft blood pressure Continue Coumadin at home dose since INR is 2.7 which is within goal 3. Stage I acute kidney injury: Avoid nephrotoxic agent Status post IV fluid boluses in the ED, to be followed by IV NS at 100 cc/h BMP in the morning to trend kidney function 4. BPH: Continue Terazosin and finasteride GI prophylaxis: Not currently indicated DVT prophylaxis: Coumadin CODE STATUS: Full code Prognosis: Guarded Dispositions: Inpatient MedSurg Time Spent With Patient Time: Total time spent is greater than 50% in coordination of care (as documented) at patient's floor/unit and/or counseling patient: Total time spent with greater than 50% in coordination of care (as documented) at patient's floor/unit and/or counseling patient:: Greater than 35 minutes
[2021-08-20] MEDS ORDERED: IPRATROPIUM/ALBUTEROL 3 ML AMPUL.NEB NEB PRN (23:22)
[2021-08-20] MEDS ORDERED: SIMVASTATIN 20 MG TABLET PO SCH (23:22)
[2021-08-20] MEDS ORDERED: fentaNYL 100 MCG PATCH TOPICAL SCH (23:22)
[2021-08-20] MEDS ORDERED: WARFARIN 5 MG TABLET PO SCH (23:22)
[2021-08-20] MEDS ORDERED: guaiFENesin/DEXTROMETHORPHAN ORAL SOL PO PRN (23:22)
[2021-08-20] MEDS ORDERED: ZOLPIDEM 10 MG PO SCH (23:22)
[2021-08-20] MEDS ORDERED: ONDANSETRON 4 MG/2 ML VIAL IV PRN (23:22)
[2021-08-20] MEDS ORDERED: ACETAMINOPHEN 325 MG TABLET PO ONE (23:31)
[2021-08-20] MEDS: 0.9 % SODIUM CHLORIDE 10 ML SYRINGE IV SCH (23:33)
[2021-08-20] MEDS: 0.9 % SODIUM CHLORIDE 1,000 ML IV SCH (23:34)
[2021-08-20] MEDS: ACETAMINOPHEN 325 MG TABLET PO PRN (23:35)
[2021-08-21] MEDS: AZITHROMYCIN 500 MG in DEXTROSE 5% IN WATER 250 ML IV SCH ×2 (00:04→10:57)
[2021-08-21] MEDS: 0.9 % SODIUM CHLORIDE 10 ML SYRINGE IV SCH ×3 (06:17→21:12)
[2021-08-21 07:18] LABS: Basophils # (Auto) 0.01 K/mcL (0.00-0.30); Basophils % (Auto) 0.1 % (0.0-2.0); Eosinophils # (Auto) 0.01 K/mcL (0.00-0.70); Eosinophils % (Auto) 0.1 % (0.0-7.0); Hematocrit 41.3 % (40.1-51.0); Hemoglobin 13.1 g/dL (13.7-17.5); Lymphocytes # (Auto) 0.72 K/mcL (1.50-4.80); Lymphocytes % (Auto) 10.2 % (15.5-49.0); Mean Cell Volume 91.8 fL (80.0-100.0); Mean Corpuscular HGB Conc 31.7 g/dL (31.0-36.0); Mean Platelet Volume 10.9 fL (7.4-10.4); Monocytes # (Auto) 0.06 K/mcL (0.10-0.90); Monocytes % (Auto) 0.9 % (1.0-12.0); Neutrophils % (Auto) 88.7 % (38.0-78.0); Platelet Count 188 K/mcL (140-440); Red Cell Distribution Width 13.1 % (11.5-14.5)
[2021-08-21 07:45] LABS: Blood Urea Nitrogen 26 mg/dL (8-23); Calcium 8.4 mg/dL (8.6-10.4); Carbon Dioxide 22 mmol/L (22-30); Chloride 105 mmol/L (96-108); Glomerular Filtration Rate 47; Glucose 156 mg/dL (70-105)
--- NOTE | 2021-08-21 08:34 | EKG ---
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 Measurements Intervals [place] Rate: 58 P: CT: QRS: 83 QRSD: 80 T: 5 QT: 392 QTc: 386 Interpretive Statements ACCELERATED JUNCTIONAL ESCAPE RHYTHM Electronically Signed On 08-21-2021 8:34:00 PDT by Shiva Castle M.D. /[email or web address]/[email or web address]/[id number]
[2021-08-21] MEDS: FINASTERIDE 5 MG TABLET PO SCH (08:36)
[2021-08-21] MEDS: OSELTAMIVIR PHOSPHATE 75 MG CAPSULE PO SCH ×2 (08:36→21:11)
[2021-08-21] MEDS: DOCUSATE SODIUM 100 MG CAPSULE PO SCH ×2 (08:36→21:12)
[2021-08-21] MEDS: POTASSIUM CHLORIDE 10 MEQ TABLET PO SCH (08:37)
[2021-08-21] MEDS ORDERED: SENNOSIDES 1 TABLET PO SCH (09:00)
[2021-08-21] MEDS: cefTRIAXone 1 GM VIAL IV SCH (09:58)
[2021-08-21] MEDS: 0.9 % SODIUM CHLORIDE 1,000 ML IV SCH ×2 (09:59→20:00)
--- NOTE | 2021-08-21 10:26 | Internal Med Progress Note ---
SUBJECTIVE Subjective Patient information: Note initiated : 08/21/21 at 10:22 am Service Date, if different from initiated Date: [] Patient: Andrés Santillan 81 y/o M admitted on 08/20/21 for weakness/fever. Chief Complaint: [Hematocrit pneumonia and influenza B] Interval history: History of present illness: Mr. Santillan is a 81 year old M history of atrial fibrillation's on anticoagulation therapy, BPH, presenting with 1 day history of altered mental status and general body weakness. Patient is vaccinated against Covid pneumonia. Patient is not vaccinated against influenza. Patient denies any recent travel or sick contact. Patient was in his usual state of health until earlier this morning when he was told by his family that he had acute onset altered mental status. He is also committing of general body weakness. He denies any shortness of breath. He denies any cough sputum production or respiratory wheezings. He denies any fever, shaking chills, or diaphoresis. He denies any change in appetite. He denies any GI symptoms such as nausea, vomiting, diarrhea, or constipation's. He denies any muscle cramps or muscle aches. He denies any headaches or lightheadedness. Vital signs at ED presentation significant for oxygen saturations in the high 80s on room air, as well as soft blood pressure 70s over 50s mmHg. labs significant for lack of leukocytosis with WBC 9.6. Serum lactic acid 1.0. Serum creatinine level 2.0 with baseline 1.0. Covid screening negative. Influenza B positive. Chest x-ray significant for right-sided pulmonary infiltrates. 08/21: Low-grade fever T-max 37.4 overnight. Blood culture no growth to date. Covid PCR negative. Patient was up to 2 L/min of oxygen overnight currently is tolerating room air. Patient is committing of improving shortness of breath. Patient denies any cough or sputum production or wheezing. He is coming of nasal congestion. Is committing of general body weakness. Constitutional Vitals: Vital Signs Temp Pulse Resp BP Pulse Ox 36.2 C 53 L 16 99/60 95 08/21/21 07:15 08/21/21 07:15 08/21/21 07:15 08/21/21 07:15 08/21/21 07:15 Period Temp Pulse Resp BP Sys/Chow Pulse Ox Last 24 Hr 36.2 C-39.2 C 46-85 12-21 73-112/43-92 87-99 Intake and Output 08/20/21 08/21/21 08/21/21 21:59 05:59 13:59 Intake Total 2300 50 1250 Output Total 100 Balance 2300 -50 1250 Weight 63.503 kg 67.449 kg Intake & Output: Intake & Output 08/20/21 08/21/21 08/21/21 21:59 05:59 13:59 Intake Total 2300 50 1250 Output Total 100 Balance 2300 -50 1250 Weight 63.503 kg 67.449 kg Intake: IV 2300 1000 Sodium Chloride 0.9% 1,000 ml @ 2000 1000 100 mls/hr IV .Q10H [facility] Rx#: [id number] Zithromax 500 mg In Dextrose 5% 250 in Water 250 ml @ 250 mls/hr IV ONCE ONE Rx#:[id number] Rocephin 1 gm In Dextrose 5% in 50 Water 50 ml @ 100 mls/hr IV ONCE [facility] Rx#:[id number] Oral 50 250 Output: Void Amount 100 Other: Meal Breakfast Percent of Meal Consumed 25% Feeding Ability Assist with Tray Set Up Stool Size Moderate Stool Color Brown Stool Consistency Normal for Patient # Voids 1 # Bowel Movements 1 General appearance: cooperative and no acute distress Head Head exam: Present atraumatic and normocephalic Eye Eye exam: Present EOMI and PERRL ENT ENT exam: Present mucous membranes moist, normal exam and normal external ear exam Neck Neck exam: Present normal inspection; Absent lymphadenopathy, tenderness and thyromegaly Respiratory Respiratory exam: Present CTAB; Absent accessory muscle use, respiratory distress and wheezes Cardiovascular Cardiovascular exam: Present irregular rhythm; Absent JVD GI/Abdominal GI/Abdominal exam: Present normal bowel sounds and soft; Absent organomegaly and tenderness Rectal Rectal exam: Present deferred Extremities Exam Extremities exam: Present full ROM, normal capillary refill and normal inspection; Absent tenderness Neurological Exam Neurological exam: Present alert, CN II-XII intact and oriented X3; Absent motor sensory deficit Psychiatric Psychiatric exam: Present normal affect and normal mood; Absent anxious and d epressed Skin Skin exam: Present dry and intact OBJ DATA Labs CBC & Chem 7: 08/21/21 05:59 08/21/21 05:59 Labs: Abnormal Lab Results 08/21/21 08/21/21 08/20/21 05:59 05:59 19:50 RBC 4.50 L Hgb 13.1 L MPV 10.9 H Neut % (Auto) 88.7 H Lymph % (Auto) 10.2 L Henderson % (Auto) 0.9 L Lymph # (Auto) 0.72 L Henderson # (Auto) 0.06 L PT INR APTT BUN 26 H Creatinine 1.4 H Glucose 156 H Calcium 8.4 L Total Creatine Kinase NT-Pro-B Natriuret Pep Procalcitonin 0.10 H 08/20/21 08/20/21 08/20/21 19:50 19:50 19:50 RBC Hgb MPV Neut % (Auto) 82.1 H Lymph % (Auto) 11.5 L Henderson % (Auto) Lymph # (Auto) 1.11 L [place] # (Auto) PT 30.1 H INR 2.7 H APTT 42.5 H BUN 29 H Creatinine 2.0 H Glucose 124 H Calcium Total Creatine Kinase 769 H NT-Pro-B Natriuret Pep 975.2 H Procalcitonin Meds: Medications Acetaminophen (Acetaminophen 325 Mg Tablet) 650 mg PO Q6HP PRN; Protocol PRN Reason: Per Pain Protocol/Fever > 101 Last Admin: 08/20/21 23:35 Dose: 650 mg Documented by: Albuterol/Ipratropium (Ipratropium/Albuterol 3 Ml Ampul.Neb) 3 ml NEB Q4HRT PRN PRN Reason: Wheezing Ceftriaxone Sodium (Ceftriaxone 1 Gm Vial) 1 gm IV Q24H [facility] Last Admin: 08/21/21 09:58 Dose: 1 gm Documented by: Docusate Sodium (Docusate Sodium 100 Mg Capsule) 100 mg PO BID [facility] Last Admin: 08/21/21 08:36 Dose: 100 mg Documented by: Doxazosin Mesylate (Doxazosin 1 Mg Tablet) 1 mg PO HS [facility] Fentanyl (Fentanyl 100 Mcg Patch) 100 mcg TOPICAL Q72H [facility] Finasteride (Finasteride 5 Mg Tablet) 5 mg PO DAILY [facility] Last Admin: 08/21/21 08:36 Dose: 5 mg Documented by: Guaifenesin (Guaifenesin/Dextromethorphan Oral Dary) 10 ml PO Q4HP PRN PRN Reason: Cough Sodium Chloride (Sodium Chloride 0.9%) 1,000 mls @ 100 mls/hr IV .Q10H [facility] Last Admin: 08/21/21 09:59 Dose: 100 mls/hr Documented by: Azithromycin 500 mg/ Dextrose 250 mls @ 250 mls/hr IV Q24H [facility]; Protocol Stop: 08/23/21 00:21 Last Admin: 08/21/21 00:04 Dose: Not Given Documented by: Non-Formulary Medication (Oxycodone) 20 mg PO TID [facility] Non-Formulary Medication (Zolpidem) 10 mg PO Q48H [facility] Last Admin: 08/21/21 01:42 Dose: Not Given Documented by: Nortriptyline HCl (Nortriptyline 10 Mg Capsule) 10 mg PO HS [facility] Ondansetron HCl (Ondansetron 4 Mg/2 Ml Vial) 4 mg IV Q6HP PRN PRN Reason: Nausea And Vomiting Oseltamivir Phosphate (Oseltamivir Phosphate 75 Mg Capsule) 75 mg PO BID [facility] Last Admin: 08/21/21 08:36 Dose: 75 mg Documented by: Potassium Chloride (Potassium Chloride 10 Meq Tablet) 10 meq PO DAILY [facility] Last Admin: 08/21/21 08:37 Dose: 10 meq Documented by: Senna (Sennosides 1 Tablet) 2 tab PO HS [facility] Simvastatin (Simvastatin 20 Mg Tablet) 20 mg PO Q48H [facility] Last Admin: 08/21/21 00:04 Dose: Not Given Documented by: Sodium Chloride (0.9 % Sodium Chloride 10 Ml Syringe) 10 ml IV Q8 [facility] Last Admin: 08/21/21 06:17 Dose: Not Given Documented by: Trazodone HCl (Trazodone Hcl 50 Mg Tablet) 50 mg PO HS [facility] Warfarin Sodium (Warfarin 5 Mg Tablet) 5 mg PO .COMPLEX [facility] A/P Assessment and plan (1) Influenza B: Status: Acute (2) Community acquired pneumonia: Status: Acute (3) Stage 1 acute kidney injury: Status: Acute (4) BPH (benign prostatic hyperplasia): Status: Acute (5) Atrial fibrillation: Status: Acute (6) Delirium: Status: Acute Narrative A/P Narrative: Assessment and plan: 1. Community-acquired pneumonia s influenza B with associated acute delirium: Stays in inpatient MedSur Lactic acid Procalcitonin Blood culture no growth to date Covid PCR negative d/c Isolation protocol Supplemental oxygen therapy titrate to achieve SPO2 above or equal to 92% Tamiflu Rocephin Zithromax Status post IV fluid boluses in the ED, to be followed by IV NS at 100 cc/h CBC with auto differential in the morning to trend WBC Tylenol as needed fever Robitussin-DM as needed cough DuoNeb nebulizer as needed wheezing Frequent reorientation's and protected sleep time at night in addition to treatment of the infections to help patient recover from delirium 2. History of atrial fibrillation: Hold diltiazem in face of bradycardia and soft blood pressure Continue Coumadin at home dose since INR is 2.7 which is within goal 3. Stage I acute kidney injury: Avoid nephrotoxic agent Status post IV fluid boluses in the ED, to be followed by IV NS at 100 cc/h BMP in the morning to trend kidney function 4. BPH: Continue Terazosin and finasteride GI prophylaxis: Not currently indicated DVT prophylaxis: Coumadin CODE STATUS: Full code Prognosis: Guarded Dispositions: Inpatient MedSurg Time Spent With Patient Time: Total time spent is greater than 50% in coordination of care (as documented) at patient's floor/unit and/or counseling patient: QUALITY Stroke Symptom Onset Unknown: No VTE Deep Vein Thrombosis/Pulmonary Embolism Present on Admission: No
[2021-08-21] MEDS: oxyCODONE HCL 5 MG TABLET PO SCH ×4 (10:57→21:10)
[2021-08-21] MEDS: fentaNYL 100 MCG PATCH TOPICAL SCH (10:58)
[2021-08-21 12:42] LABS: Prothrombin Time 41.1 sec (11.9-14.5)
--- NOTE | 2021-08-21 13:03 | Internal Med Progress Note ---
SUBJECTIVE Subjective Patient information: Note initiated : 08/21/21 at 12:57 pm Service Date, if different from initiated Date: [] Patient: Andrés Santillan 81 y/o M admitted on 08/20/21 for weakness/fever. Chief Complaint: [] Interval history: History of present illness: Mr. Santillan is a 81 year old M history of atrial fibrillation's on anticoagulation therapy, BPH, presenting with 1 day history of altered mental status and general body weakness. Patient is vaccinated against Covid pneumonia. Patient is not vaccinated against influenza. Patient denies any recent travel or sick contact. Patient was in his usual state of health until earlier this morning when he was told by his family that he had acute onset altered mental status. He is also committing of general body weakness. He denies any shortness of breath. He denies any cough sputum production or respiratory wheezings. He denies any fever, shaking chills, or diaphoresis. He denies any change in appetite. He denies any GI symptoms such as nausea, vomiting, diarrhea, or constipation's. He denies any muscle cramps or muscle aches. He denies any headaches or lightheadedness. Vital signs at ED presentation significant for oxygen saturations in the high 80s on room air, as well as soft blood pressure 70s over 50s mmHg. labs significant for lack of leukocytosis with WBC 9.6. Serum lactic acid 1.0. Serum creatinine level 2.0 with baseline 1.0. Covid screening negative. Influenza B positive. Chest x-ray significant for right-sided pulmonary infiltrates. 08/21: Low-grade fever T-max 37.4 overnight. Blood culture no growth to date. Covid PCR negative. Patient was up to 2 L/min of oxygen overnight currently is tolerating room air. Patient is committing of improving shortness of breath. Patient denies any cough or sputum production or wheezing. He is coming of nasal congestion. Is committing of general body weakness. 08/22 Constitutional Vitals: Vital Signs Temp Pulse Resp BP Pulse Ox 97.2 F 53 L 16 99/60 95 08/21/21 07:15 08/21/21 07:15 08/21/21 07:15 08/21/21 07:15 08/21/21 07:15 Period Temp Pulse Resp BP Sys/Chow Pulse Ox Last 24 Hr 97.2 F-102.5 F 46-85 12- 73-112/43-92 87-99 Intake and Output 08/20/21 08/21/21 08/21/21 21:59 05:59 13:59 Intake Total 2300 50 1500 Output Total 100 Balance 2300 -50 1500 Weight 63.503 kg 67.449 kg Intake & Output: Intake & Output 08/20/21 08/21/21 08/21/21 21:59 05:59 13:59 Intake Total 2300 50 1500 Output Total 100 Balance 2300 -50 1500 Weight 63.503 kg 67.449 kg Intake: IV 2300 1250 Sodium Chloride 0.9% 1,000 ml @ 2000 1000 100 mls/hr IV .Q10H [facility] Rx#: [id number] Zithromax 500 mg In Dextrose 5% 250 250 in Water 250 ml @ 250 mls/hr IV Q24H [facility] Rx#:[id number] Rocephin 1 gm In Dextrose 5% in 50 Water 50 ml @ 100 mls/hr IV ONCE [facility] Rx#:[id number] Oral 50 250 Output: Void Amount 100 Other: Meal Breakfast Percent of Meal Consumed 25% Feeding Ability Assist with Tray Set Up Stool Size Moderate Stool Color Brown Stool Consistency Normal for Patient # Voids 1 # Bowel Movements 1 Exam: General: Alert, Awake, No acute Distress Eyes/N/T: EOMI, Head/Neck: neck supple, CV: RRR, No murmurs, normal s1/s2 Pulm: Clear b/l, no wheezing/rhonchi/rales Abd: soft, nontender, +BS x4 Ext: no clubbing/cyanosis/edema Neuro: Alert, no focal deficits, moves all extremities, Skin: warm/dry OBJ DATA Labs CBC & Chem 7: 08/21/21 05:59 08/21/21 05:59 Labs: Abnormal Lab Results 08/21/21 08/21/21 08/21/21 11:10 05:59 05:59 RBC 4.50 L Hgb 13.1 L MPV 10.9 H Neut % (Auto) 88.7 H Lymph % (Auto) 10.2 L [place] % (Auto) 0.9 L Lymph # (Auto) 0.72 L [place] # (Auto) 0.06 L PT 41.1 H INR 4.0 H APTT BUN 26 H Creatinine 1.4 H Glucose 156 H Calcium 8.4 L Total Creatine Kinase NT-Pro-B Natriuret Pep Procalcitonin 08/20/21 08/20/21 08/20/21 19:50 19:50 19:50 RBC Hgb MPV Neut % (Auto) Lymph % (Auto) [place] % (Auto) Lymph # (Auto) [place] # (Auto) PT 30.1 H INR 2.7 H APTT 42.5 H BUN 29 H Creatinine 2.0 H Glucose 124 H Calcium Total Creatine Kinase 769 H NT-Pro-B Natriuret Pep 975.2 H Procalcitonin 0.10 H 08/20/21 19:50 RBC Hgb MPV Neut % (Auto) 82.1 H Lymph % (Auto) 11.5 L [place] % (Auto) Lymph # (Auto) 1.11 L [place] # (Auto) PT INR APTT BUN Creatinine Glucose Calcium Total Creatine Kinase NT-Pro-B Natriuret Pep Procalcitonin Meds: Medications Acetaminophen (Acetaminophen 325 Mg Tablet) 650 mg PO Q6HP PRN; Protocol PRN Reason: Per Pain Protocol/Fever > 101 Last Admin: 08/20/21 23:35 Dose: 650 mg Documented by: Albuterol/Ipratropium (Ipratropium/Albuterol 3 Ml Ampul.Neb) 3 ml NEB Q4HRT PRN PRN Reason: Wheezing Ceftriaxone Sodium (Ceftriaxone 1 Gm Vial) 1 gm IV Q24H [facility] Last Admin: 08/21/21 09:58 Dose: 1 gm Documented by: Docusate Sodium (Docusate Sodium 100 Mg Capsule) 100 mg PO BID [facility] Last Admin: 08/21/21 08:36 Dose: 100 mg Documented by: Doxazosin Mesylate (Doxazosin 1 Mg Tablet) 1 mg PO HS [facility] Fentanyl (Fentanyl 100 Mcg Patch) 100 mcg TOPICAL Q72H [facility] Last Admin: 08/21/21 10:58 Dose: 100 mcg Documented by: Finasteride (Finasteride 5 Mg Tablet) 5 mg PO DAILY [facility] Last Admin: 08/21/21 08:36 Dose: 5 mg Documented by: Guaifenesin (Guaifenesin/Dextromethorphan Oral Dary) 10 ml PO Q4HP PRN PRN Reason: Cough Sodium Chloride (Sodium Chloride 0.9%) 1,000 mls @ 100 mls/hr IV .Q10H [facility] Last Admin: 08/21/21 09:59 Dose: 100 mls/hr Documented by: Azithromycin 500 mg/ Dextrose 250 mls @ 250 mls/hr IV Q24H [facility]; Protocol Stop: 08/23/21 00:21 Last Infusion: 08/21/21 11:57 Dose: Infused Documented by: Nortriptyline HCl (Nortriptyline 10 Mg Capsule) 10 mg PO HS [facility] Ondansetron HCl (Ondansetron 4 Mg/2 Ml Vial) 4 mg IV Q6HP PRN PRN Reason: Nausea And Vomiting Oseltamivir Phosphate (Oseltamivir Phosphate 75 Mg Capsule) 75 mg PO BID [facility] Last Admin: 08/21/21 08:36 Dose: 75 mg Documented by: Oxycodone HCl (Oxycodone Hcl 5 Mg Tablet) 20 mg PO QID [facility] Last Admin: 08/21/21 12:52 Dose: Not Given Documented by: Potassium Chloride (Potassium Chloride 10 Meq Tablet) 10 meq PO DAILY [facility] Last Admin: 08/21/21 08:37 Dose: 10 meq Documented by: Senna (Sennosides 1 Tablet) 2 tab PO HS [facility] Simvastatin (Simvastatin 20 Mg Tablet) 20 mg PO Q48@2100 [facility] Sodium Chloride (0.9 % Sodium Chloride 10 Ml Syringe) 10 ml IV Q8 [facility] Last Admin: 08/21/21 06:17 Dose: Not Given Documented by: Trazodone HCl (Trazodone Hcl 50 Mg Tablet) 50 mg PO HS [facility] Warfarin Sodium (Warfarin Per Pharmacy) 1 order PO UD [facility] A/P Narrative A/P Narrative: Assessment and plan: 1. CAP & Influenza B w/associated acute delirium: -Covid PCR negative -prn Supplemental oxygen therapy -Tamiflu -Rocephin/Zithromax -Frequent reorientation's and protected sleep 2. History of atrial fibrillation: -Hold diltiazem in face of bradycardia and soft blood pressure -Continue Coumadin 2b. Bradycardia: was on cardizem 480 daily, currently held 3. RADHA: improved s/p IV fluid boluses 4. BPH: Continue Terazosin and finasteride 5. Anxiety/Depression: DVT prophylaxis: Coumadin per pharmarcy CODE stATUS: Full code Time Spent With Patient Time: Total time spent is greater than 50% in coordination of care (as documented) at patient's floor/unit and/or counseling patient: QUALITY Stroke Symptom Onset Unknown: No VTE Deep Vein Thrombosis/Pulmonary Embolism Present on Admission: No
--- NOTE | 2021-08-21 15:05 | Discharge Summary ---
Discharge Provider Provider Patient information: Note initiated : 08/21/21 at 3:04 pm Service Date, if different from initiated Date: [] Patient: Andrés Santillan 81 y/o M admitted on 08/20/21 for weakness/fever. Chief Complaint: [] Date of admission: 08/20/21 23:00 Discharge date: 08/24/21 Primary care physician: Nicola Canseco Consults: 08/20/21 Consult to Physician [CONS] Stat Comment: Consulting Provider: Braeden Almendarez Reason For Exam: Physician to Consult Discharge Meds Discharge Medications Home Medications doxazosin 1 mg PO HS 02/07/20 [History Confirmed 08/21/21 Last Taken Unknown] nortriptyline 20 mg PO HS 02/07/20 [History Confirmed 08/21/21 Last Taken 02/06/20 20:00] potassium chloride 10 meq PO DAILY 02/07/20 [History Confirmed 08/21/21 Last Taken 02/06/20 08:00] sennosides 8.6 mg PO DAILY 02/07/20 [History Confirmed 08/21/21 Last Taken 02/06/20 20:00] fentanyl 100 mcg TOPICAL Q72H 02/08/20 [History Confirmed 08/21/21 Last Taken Unknown] finasteride 5 mg PO DAILY 02/08/20 [History Confirmed 08/21/21 Last Taken Unknown] ondansetron 4 mg SL Q4-6HP PRN 02/08/20 [History Confirmed 08/21/21 Last Taken Unknown] oxycodone 20 mg PO QID 02/08/20 [History Confirmed 08/21/21 Last Taken Unknown] trazodone 100 mg PO HS 02/08/20 [History Confirmed 08/21/21 Last Taken Unknown] warfarin 3 mg PO DAILY 02/08/20 [History Confirmed 08/21/21 Last Taken Unknown] clorazepate dipotassium 15 mg PO BID PRN 08/21/21 [History Confirmed 08/21/21 Last Taken Unknown] furosemide 40 mg PO DAILY 08/21/21 [History Confirmed 08/21/21 Last Taken Unknown] gabapentin 100 mg PO TID 08/21/21 [History Confirmed 08/21/21 Last Taken Unknown] cefdinir 300 mg PO BID #4 cap 08/23/21 [Rx Last Taken Unknown] diltiazem HCl 120 mg PO QAM #30 cap 08/23/21 [Rx Last Taken Unknown] oseltamivir 75 mg PO BID #2 cap 08/23/21 [Rx Last Taken Unknown] COURSE Hospital Course Hospital course: Interval history: History of present illness: Mr. Santillan is a 81 year old M history of atrial fibrillation's on anticoagulation therapy, BPH, presenting with 1 day history of altered mental status and general body weakness. Patient is vaccinated against Covid pneumonia. Patient is not vaccinated against influenza. Patient denies any recent travel or sick contact. Patient was in his usual state of health until earlier this morning when he was told by his family that he had acute onset altered mental status. He is also committing of general body weakness. He denies any shortness of breath. He denies any cough sputum production or respiratory wheezings. He denies any fever, shaking chills, or diaphoresis. He denies any change in appetite. He denies any GI symptoms such as nausea, vomiting, diarrhea, or constipation's. He denies any muscle cramps or muscle aches. He denies any headaches or lightheadedness. Vital signs at ED presentation significant for oxygen saturations in the high 80s on room air, as well as soft blood pressure 70s over 50s mmHg. labs significant for lack of leukocytosis with WBC 9.6. Serum lactic acid 1.0. Serum creatinine level 2.0 with baseline 1.0. Covid screening negative. Influenza B positive. Chest x-ray significant for right-sided pulmonary infiltrates. 08/21: Low-grade fever T-max 37.4 overnight. Blood culture no growth to date. Covid PCR negative. Patient was up to 2 L/min of oxygen overnight currently is tolerating room air. Patient is committing of improving shortness of breath. Patient denies any cough or sputum production or wheezing. He is coming of nasal congestion. Is committing of general body weakness. 08/22 No overnight events or new complaints. Creatinine improved. Patient feels weakness is improving. Occasional cough. 08/23 Patient states he has an upset stomach this morning. Is went to the bathroom a few times but denies diarrhea. No fever chills cough shortness of breath. 08/24 Doing well. No overnight event or new complaints. On room air. + Blood cultu re a contaminant Assessment and plan: # CAP & Influenza B w/associated acute delirium & likely underlying dementia vs MCI: #Acute hypoxic respiratory failure: 2/2 above #h/o Atrial fibrillation: #Bradycardia: was on cardizem 480 daily, currently held, will restart at low dose #RADHA: improved s/p IVF #BPH: Continue Terazosin and finasteride #Anxiety/Depression: Discharge diagnosis: [facility] pneumonia and influenza B Secondary discharge diagnosis: History of A. fib RADHA BPH anxiety depression Time Spent with Patient Time attestation: Total time spent providing and/or coordinating discharge services: Time spent: Greater than 30 minutes EXAM Constitutional Vitals: Temp Pulse Resp BP Pulse Ox 96.9 F L 53 L 16 119/60 100 08/21/21 12:00 08/21/21 07:15 08/21/21 12:00 08/21/21 12:00 08/21/21 12:00 Discharge Data Data Completed and Pending Labs on day of discharge: Labs from last 24 hours 08/21/21 08/21/21 08/21/21 11:10 05:59 05:59 WBC 7.0 RBC 4.50 L Hgb 13.1 L Hct 41.3 MCV 91.8 MCH 29.1 MCHC 31.7 RDW 13.1 Plt Count 188 MPV 10.9 H Neut % (Auto) 88.7 H Lymph % (Auto) 10.2 L [place] % (Auto) 0.9 L Eos % (Auto) 0.1 Baso % (Auto) 0.1 Lymph # (Auto) 0.72 L [place] # (Auto) 0.06 L Eos # (Auto) 0.01 Baso # (Auto) 0.01 Absolute Neutrophils 6.23 PT 41.1 H INR 4.0 H APTT VBG Lactic Acid Sodium 137 Potassium 4.5 Chloride 105 Carbon Dioxide 22 Anion Gap 10.0 BUN 26 H Creatinine 1.4 H GFR Calculation 47 Glucose 156 H Calcium 8.4 L Magnesium Total Bilirubin AST ALT Alkaline Phosphatase Total Creatine Kinase Troponin T NT-Pro-B Natriuret Pep Total Protein Albumin Globulin Albumin/Globulin Ratio Lipase Procalcitonin 08/20/21 08/20/21 08/20/21 19:50 19:50 19:50 WBC RBC Hgb Hct MCV MCH MCHC RDW Plt Count MPV Neut % (Auto) Lymph % (Auto) [place] % (Auto) Eos % (Auto) Baso % (Auto) Lymph # (Auto) [place] # (Auto) Eos # (Auto) Baso # (Auto) Absolute Neutrophils PT INR APTT VBG Lactic Acid Sodium 140 Potassium 4.4 Chloride 104 Carbon Dioxide 22 Anion Gap 14.0 BUN 29 H Creatinine 2.0 H GFR Calculation 30 Glucose 124 H Calcium 8.6 Magnesium 1.9 Total Bilirubin 0.4 AST 32 ALT 9 Alkaline Phosphatase 105 Total Creatine Kinase 769 H Troponin T 0.02 NT-Pro-B Natriuret Pep 975.2 H Total Protein 6.9 Albumin 3.4 Globulin 3.5 Albumin/Globulin Ratio 1.0 Lipase 15 Procalcitonin 0.10 H 08/20/21 08/20/21 08/20/21 19:50 19:50 19:40 WBC 9.6 RBC 4.68 Hgb 14.0 Hct 42.2 MCV 90.2 MCH 29.9 MCHC 33.2 RDW 13.0 Plt Count 202 MPV 10.3 Neut % (Auto) 82.1 H Lymph % (Auto) 11.5 L [place] % (Auto) 5.9 Eos % (Auto) 0.1 Baso % (Auto) 0.4 Lymph # (Auto) 1.11 L [place] # (Auto) 0.57 Eos # (Auto) 0.01 Baso # (Auto) 0.04 Absolute Neutrophils 7.90 PT 30.1 H INR 2.7 H APTT 42.5 H VBG Lactic Acid 1.0 Sodium Potassium Chloride Carbon Dioxide Anion Gap BUN Creatinine GFR Calculation Glucose Calcium Magnesium Total Bilirubin AST ALT Alkaline Phosphatase Total Creatine Kinase Troponin T NT-Pro-B Natriuret Pep Total Protein Albumin Globulin Albumin/Globulin Ratio Lipase Procalcitonin Discharge Plan Patient/Caregiver Discharge Instructions Activity: increase activity as tolerated Diet: Regular Diet Activity Restrictions/Additional Instructions: Monitor heart rate daily and if his heart rate increases to greater than 90 he may need to increase his diltiazem, call PCP Prescriptions: New diltiazem HCl 120 mg capsule,extended release 24hr 120 mg PO QAM Qty: 30 RF: 0 oseltamivir 75 mg Capsule 75 mg PO BID Qty: 2 RF: 0 cefdinir 300 mg capsule 300 mg PO BID Qty: 4 RF: 0 Continued sennosides 8.6 MG tablet 8.6 mg PO DAILY RF: 0 doxazosin 1 MG tablet 1 mg PO HS RF: 0 potassium chloride 10 MEQ tablet 10 meq PO DAILY RF: 0 nortriptyline 10 MG capsule 20 mg PO HS RF: 0 fentanyl 100 MCG patch 100 mcg topical Q72H RF: 0 warfarin 5 MG tablet 3 mg PO DAILY RF: 0 ondansetron 4 MG tablet 4 mg SL Q4-6HP PRN (Reason: Nausea) RF: 0 finasteride 5 MG tablet 5 mg PO DAILY RF: 0 oxycodone 20 MG tablet 20 mg PO QID RF: 0 trazodone 50 MG tablet 100 mg PO HS RF: 0 furosemide 40 mg tablet 40 mg PO DAILY RF: 0 gabapentin 100 mg capsule 100 mg PO TID RF: 0 clorazepate dipotassium 7.5 mg tablet 15 mg PO BID PRN (Reason: Anxiety) RF: 0 Discontinued diltiazem HCl 240 MG capsule,extended release 24hr 240 mg PO BID RF: 0 Follow Up Plan Follow up with: Nicola Canseco DO [Primary Care Provider] - Patient Disposition: Home, Self-Care Prognosis: Undetermined Overall status at discharge: patient is progressing back to baseline Discharge Orders: Discharge Order (Routine); Ordered 08/24/21 Ordered By: Jeremias Baker [facility] VTE Deep Vein Thrombosis/Pulmonary Embolism Present on Admission: No
[2021-08-21] MEDS: NORTRIPTYLINE 10 MG CAPSULE PO SCH (21:11)
[2021-08-21] MEDS: SIMVASTATIN 20 MG TABLET PO SCH (21:11)
[2021-08-21] MEDS: DOXAZOSIN 1 MG TABLET PO SCH (21:11)
[2021-08-21] MEDS: traZODone HCL 50 MG TABLET PO SCH (21:11)
[2021-08-21] MEDS: SENNOSIDES 1 TABLET PO SCH (21:12)
[2021-08-22] MEDS: ACETAMINOPHEN 325 MG TABLET PO PRN ×2 (04:19→19:11)
[2021-08-22] MEDS: 0.9 % SODIUM CHLORIDE 10 ML SYRINGE IV SCH ×3 (04:20→22:18)
[2021-08-22 07:09] LABS: INR 3.6 (0.9-1.1); Prothrombin Time 37.4 sec (11.9-14.5)
[2021-08-22 07:13] LABS: Blood Urea Nitrogen 24 mg/dL (8-23); Calcium 8.7 mg/dL (8.6-10.4); Carbon Dioxide 21 mmol/L (22-30); Chloride 107 mmol/L (96-108); Creatine Kinase 559 U/L (24-195); Glomerular Filtration Rate 70; Glucose 141 mg/dL (70-105)
--- NOTE | 2021-08-22 07:16 | Internal Med Progress Note ---
SUBJECTIVE Subjective Patient information: Note initiated : 08/22/21 at 7:13 am Service Date, if different from initiated Date: [] Patient: Andrés Santillan 81 y/o M admitted on 08/20/21 for weakness/fever. Chief Complaint: [] Interval history: History of present illness: Mr. Santillan is a 81 year old M history of atrial fibrillation's on anticoagulation therapy, BPH, presenting with 1 day history of altered mental status and general body weakness. Patient is vaccinated against Covid pneumonia. Patient is not vaccinated against influenza. Patient denies any recent travel or sick contact. Patient was in his usual state of health until earlier this morning when he was told by his family that he had acute onset altered mental status. He is also committing of general body weakness. He denies any shortness of breath. He denies any cough sputum production or respiratory wheezings. He denies any fever, shaking chills, or diaphoresis. He denies any change in appetite. He denies any GI symptoms such as nausea, vomiting, diarrhea, or constipation's. He denies any muscle cramps or muscle aches. He denies any headaches or lightheadedness. Vital signs at ED presentation significant for oxygen saturations in the high 80s on room air, as well as soft blood pressure 70s over 50s mmHg. labs significant for lack of leukocytosis with WBC 9.6. Serum lactic acid 1.0. Serum creatinine level 2.0 with baseline 1.0. Covid screening negative. Influenza B positive. Chest x-ray significant for right-sided pulmonary infiltrates. 08/21: Low-grade fever T-max 37.4 overnight. Blood culture no growth to date. Covid PCR negative. Patient was up to 2 L/min of oxygen overnight currently is tolerating room air. Patient is committing of improving shortness of breath. Patient denies any cough or sputum production or wheezing. He is coming of nasal congestion. Is committing of general body weakness. 08/22 No overnight events or new complaints. Creatinine improved. Patient feels weakness is improving. Occasional cough. Review of Systems: denies headache/fever/chills/nausea/vomiting/chest or abdominal pain/diarrhea. Otherwise see above. Constitutional Vitals: Vital Signs Temp Pulse Resp BP Pulse Ox 97.4 F 60 12 144/75 96 08/22/21 06:48 08/22/21 06:48 08/22/21 06:48 08/22/21 06:48 08/22/21 06:48 Period Temp Pulse Resp BP Sys/Chow Pulse Ox Last 24 Hr 96.9 F-97.8 F 53-82 12-16 99-153/60-75 94-100 Intake and Output 08/21/21 08/22/21 08/22/21 21:59 05:59 13:59 Intake Total 1000 200 Output Total 675 Balance 325 200 Weight 68.402 kg Intake & Output: Intake & Output 08/21/21 08/22/21 08/22/21 21:59 05:59 13:59 Intake Total 1000 200 Output Total 675 Balance 325 200 Weight 68.402 kg Intake: IV 1000 Sodium Chloride 0.9% 1,000 ml @ 1000 100 mls/hr IV .Q10H [facility] Rx#: [id number] Oral 200 Output: Void Amount 675 Other: Stool Size Small Stool Consistency Formed Loose # Voids 1 # Bowel Movements 1 Exam: General: Alert, Awake, No acute Distress Eyes/N/T: EOMI, Head/Neck: neck supple, CV: irreg irreg, 2/6 SM Pulm: Clear b/l, no wheezing/rhonchi/rales Abd: soft, nontender, +BS x4 Ext: no clubbing/cyanosis/edema Neuro: Alert, no focal deficits, moves all extremities, Skin: warm/dry OBJ DATA Labs CBC & Chem 7: 08/21/21 05:59 08/22/21 05:36 Labs: Abnormal Lab Results 08/22/21 08/21/21 08/21/21 05:36 11:10 05:59 RBC Hgb MPV Neut % (Auto) Lymph % (Auto) [place] % (Auto) Lymph # (Auto) [place] # (Auto) PT 37.4 H 41.1 H INR 3.6 H 4.0 H APTT BUN 26 H Creatinine 1.4 H Glucose 156 H Calcium 8.4 L Total Creatine Kinase NT-Pro-B Natriuret Pep Procalcitonin 08/21/21 08/20/21 08/20/21 05:59 19:50 19:50 RBC 4.50 L Hgb 13.1 L MPV 10.9 H Neut % (Auto) 88.7 H Lymph % (Auto) 10.2 L [place] % (Auto) 0.9 L Lymph # (Auto) 0.72 L [place] # (Auto) 0.06 L PT INR APTT BUN 29 H Creatinine 2.0 H Glucose 124 H Calcium Total Creatine Kinase 769 H NT-Pro-B Natriuret Pep 975.2 H Procalcitonin 0.10 H 08/20/21 08/20/21 19:50 19:50 RBC Hgb MPV Neut % (Auto) 82.1 H Lymph % (Auto) 11.5 L [place] % (Auto) Lymph # (Auto) 1.11 L [place] # (Auto) PT 30.1 H INR 2.7 H APTT 42.5 H BUN Creatinine Glucose Calcium Total Creatine Kinase NT-Pro-B Natriuret Pep Procalcitonin Meds: Medications Acetaminophen (Acetaminophen 325 Mg Tablet) 650 mg PO Q6HP PRN; Protocol PRN Reason: Per Pain Protocol/Fever > 101 Last Admin: 08/22/21 04:19 Dose: 650 mg Documented by: Albuterol/Ipratropium (Ipratropium/Albuterol 3 Ml Ampul.Neb) 3 ml NEB Q4HRT PRN PRN Reason: Wheezing Ceftriaxone Sodium (Ceftriaxone 1 Gm Vial) 1 gm IV Q24H [facility] Last Admin: 08/21/21 09:58 Dose: 1 gm Documented by: Docusate Sodium (Docusate Sodium 100 Mg Capsule) 100 mg PO BID [facility] Last Admin: 08/21/21 21:12 Dose: Not Given Documented by: Doxazosin Mesylate (Doxazosin 1 Mg Tablet) 1 mg PO HS [facility] Last Admin: 08/21/21 21:11 Dose: 1 mg Documented by: Fentanyl (Fentanyl 100 Mcg Patch) 100 mcg TOPICAL Q72H [facility] Last Admin: 08/21/21 10:58 Dose: 100 mcg Documented by: Finasteride (Finasteride 5 Mg Tablet) 5 mg PO DAILY [facility] Last Admin: 08/21/21 08:36 Dose: 5 mg Documented by: Guaifenesin (Guaifenesin/Dextromethorphan Oral [place]) 10 ml PO Q4HP PRN PRN Reason: Cough Azithromycin 500 mg/ Dextrose 250 mls @ 250 mls/hr IV Q24H [facility]; Protocol Stop: 08/23/21 00:21 Last Infusion: 08/21/21 11:57 Dose: Infused Documented by: Nortriptyline HCl (Nortriptyline 10 Mg Capsule) 10 mg PO HS [facility] Last Admin: 08/21/21 21:11 Dose: 10 mg Documented by: Ondansetron HCl (Ondansetron 4 Mg/2 Ml Vial) 4 mg IV Q6HP PRN PRN Reason: Nausea And Vomiting Oseltamivir Phosphate (Oseltamivir Phosphate 75 Mg Capsule) 75 mg PO BID [facility] Last Admin: 08/21/21 21:11 Dose: 75 mg Documented by: Oxycodone HCl (Oxycodone Hcl 5 Mg Tablet) 20 mg PO QID [facility] Last Admin: 08/21/21 21:10 Dose: 20 mg Documented by: Potassium Chloride (Potassium Chloride 10 Meq Tablet) 10 meq PO DAILY [facility] Last Admin: 08/21/21 08:37 Dose: 10 meq Documented by: Senna (Sennosides 1 Tablet) 2 tab PO [facility] Last Admin: 08/21/21 21:12 Dose: Not Given Documented by: Simvastatin (Simvastatin 20 Mg Tablet) 20 mg PO Q48@2100 [facility] Last Admin: 08/21/21 21:11 Dose: 20 mg Documented by: Sodium Chloride (0.9 % Sodium Chloride 10 Ml Syringe) 10 ml IV Q8 [facility] Last Admin: 08/22/21 04:20 Dose: 10 ml Documented by: Trazodone HCl (Trazodone Hcl 50 Mg Tablet) 50 mg PO HS [facility] Last Admin: 08/21/21 21:11 Dose: 50 mg Documented by: Warfarin Sodium (Warfarin Per Pharmacy) 1 order PO UD [facility] A/P Narrative A/P Narrative: Assessment and plan: # CAP & Influenza B w/associated acute delirium & suspect underlying dementia vs MCI: -Covid PCR negative -prn Supplemental oxygen therapy -Tamiflu, Rocephin/Zithromax -Frequent reorientation's and protected sleep #Acute hypoxic respiratoyre failure: 2/2 above -now on RA #h/o Atrial fibrillation: -Hold diltiazem in face of bradycardia and soft blood pressure, restart if indicated or at lower dose -Continue Coumadin #Bradycardia: was on cardizem 480 daily, currently held, may restart at low dose depending on rate #RADHA: improved s/p IVF #BPH: Continue Terazosin and finasteride #Anxiety/Depression: DVT prophylaxis: Coumadin per pharmacy CODE stATUS: Full code Time Spent With Patient Time: Total time spent is greater than 50% in coordination of care (as documented) at patient's floor/unit and/or counseling patient: QUALITY Stroke Symptom Onset Unknown: No VTE Deep Vein Thrombosis/Pulmonary Embolism Present on Admission: No
[2021-08-22] MEDS: AZITHROMYCIN 500 MG in DEXTROSE 5% IN WATER 250 ML IV SCH (08:50)
[2021-08-22] MEDS: DOCUSATE SODIUM 100 MG CAPSULE PO SCH ×2 (08:50→19:13)
[2021-08-22] MEDS: FINASTERIDE 5 MG TABLET PO SCH (08:50)
[2021-08-22] MEDS: oxyCODONE HCL 5 MG TABLET PO SCH ×4 (08:51→19:10)
[2021-08-22] MEDS: POTASSIUM CHLORIDE 10 MEQ TABLET PO SCH (08:51)
[2021-08-22] MEDS: OSELTAMIVIR PHOSPHATE 75 MG CAPSULE PO SCH ×2 (08:51→19:15)
[2021-08-22] MEDS: cefTRIAXone 1 GM VIAL IV SCH (08:58)
[2021-08-22] MEDS: traZODone HCL 50 MG TABLET PO SCH (19:13)
[2021-08-22] MEDS: SENNOSIDES 1 TABLET PO SCH (19:13)
[2021-08-22] MEDS: DOXAZOSIN 1 MG TABLET PO SCH (19:14)
[2021-08-22] MEDS: NORTRIPTYLINE 10 MG CAPSULE PO SCH (19:15)
[2021-08-23] MEDS: 0.9 % SODIUM CHLORIDE 10 ML SYRINGE IV SCH ×4 (04:58→22:13)
[2021-08-23 07:23] LABS: INR 3.5 (0.9-1.1); Prothrombin Time 36.8 sec (11.9-14.5)
[2021-08-23] MEDS ORDERED: ENALAPRILAT 1.25 MG/ML VIAL IV PRN (07:26)
[2021-08-23] MEDS ORDERED: hydrALAZINE 20 MG/ML VIAL IV PRN (07:26)
--- NOTE | 2021-08-23 07:27 | Internal Med Progress Note ---
SUBJECTIVE Subjective Patient information: Note initiated : 08/23/21 at 7:21 am Service Date, if different from initiated Date: [] Patient: Andrés Santillan a 81 y/o M admitted on 08/20/21 for weakness/fever. Chief Complaint: [] Interval history: History of present illness: Mr. Santillan is a 81 year old M history of atrial fibrillation's on anticoagulation therapy, BPH, presenting with 1 day history of altered mental status and general body weakness. Patient is vaccinated against Covid pneumonia. Patient is not vaccinated against influenza. Patient denies any recent travel or sick contact. Patient was in his usual state of health until earlier this morning when he was told by his family that he had acute onset altered mental status. He is also committing of general body weakness. He denies any shortness of breath. He denies any cough sputum production or respiratory wheezings. He denies any fever, shaking chills, or diaphoresis. He denies any change in appetite. He denies any GI symptoms such as nausea, vomiting, diarrhea, or constipation's. He denies any muscle cramps or muscle aches. He denies any headaches or lightheadedness. Vital signs at ED presentation significant for oxygen saturations in the high 80s on room air, as well as soft blood pressure 70s over 50s mmHg. labs significant for lack of leukocytosis with WBC 9.6. Serum lactic acid 1.0. Serum creatinine level 2.0 with baseline 1.0. Covid screening negative. Influenza B positive. Chest x-ray significant for right-sided pulmonary infiltrates. 08/21: Low-grade fever T-max 37.4 overnight. Blood culture no growth to date. Covid PCR negative. Patient was up to 2 L/min of oxygen overnight currently is tolerating room air. Patient is committing of improving shortness of breath. Patient denies any cough or sputum production or wheezing. He is coming of nasal congestion. Is committing of general body weakness. 08/22 No overnight events or new complaints. Creatinine improved. Patient feels weakness is improving. Occasional cough. 08/23 Patient states he has an upset stomach this morning. Is went to the bathroom a few times but denies diarrhea. No fever chills cough shortness of breath. Review of Systems: denies headache/fever/chills/nausea/vomiting/chest or abdominal pain/diarrhea. Otherwise see above. Constitutional Vitals: Vital Signs Temp Pulse Resp BP Pulse Ox 97.5 F 60 16 162/82 97 08/23/21 02:54 08/23/21 02:54 08/23/21 02:54 08/23/21 02:54 08/23/21 02:54 Period Temp Pulse Resp BP Sys/Chow Pulse Ox Last 24 Hr 97.3 F-98.3 F 59-75 12-17 157-190/71-85 93-97 Intake and Output 08/22/21 08/23/21 08/23/21 21:59 05:59 13:59 Intake Total 1050 400 Output Total 1000 Balance 50 400 Weight 68.402 kg Intake & Output: Intake & Output 08/22/21 08/23/21 08/23/21 21:59 05:59 13:59 Intake Total 1050 400 Output Total 1000 Balance 50 400 Weight 68.402 kg Intake: IV 250 Zithromax 500 mg In Dextrose 5% 250 in Water 250 ml @ 250 mls/hr IV Q24H [facility] Rx#:[id number] Oral 400 400 GI Tube Flush 400 Output: Void Amount 1000 Other: # Voids 2 Exam: General: Alert, Awake, No acute Distress Eyes/N/T: EOMI, Head/Neck: neck supple, CV: irreg irreg, 2/6 SM Pulm: Clear b/l, no wheezing/rhonchi/rales Abd: soft, nontender, +BS x4 Ext: no clubbing/cyanosis/edema Neuro: Alert, no focal deficits, moves all extremities, Skin: warm/dry OBJ DATA Labs CBC & Chem 7: 08/21/21 05:59 08/22/21 05:36 Labs: Abnormal Lab Results 08/22/21 08/22/21 08/21/21 05:36 05:36 11:10 RBC Hgb MPV Neut % (Auto) Lymph % (Auto) Cooke % (Auto) Lymph # (Auto) Cooke # (Auto) PT 37.4 H 41.1 H INR 3.6 H 4.0 H APTT Carbon Dioxide 21 L BUN 24 H Creatinine Glucose 141 H Calcium Total Creatine Kinase 559 H NT-Pro-B Natriuret Pep Procalcitonin 08/21/21 08/21/21 08/20/21 05:59 05:59 19:50 RBC 4.50 L Hgb 13.1 L MPV 10.9 H Neut % (Auto) 88.7 H Lymph % (Auto) 10.2 L Cooke % (Auto) 0.9 L Lymph # (Auto) 0.72 L Cooke # (Auto) 0.06 L PT INR APTT Carbon Dioxide BUN 26 H Creatinine 1.4 H Glucose 156 H Calcium 8.4 L Total Creatine Kinase NT-Pro-B Natriuret Pep Procalcitonin 0.10 H 08/20/21 08/20/21 08/20/21 19:50 19:50 19:50 RBC Hgb MPV Neut % (Auto) 82.1 H Lymph % (Auto) 11.5 L Cooke % (Auto) Lymph # (Auto) 1.11 L Cooke # (Auto) PT 30.1 H INR 2.7 H APTT 42.5 H Carbon Dioxide BUN 29 H Creatinine 2.0 H Glucose 124 H Calcium Total Creatine Kinase 769 H NT-Pro-B Natriuret Pep 975.2 H Procalcitonin Meds: Medications Acetaminophen (Acetaminophen 325 Mg Tablet) 650 mg PO Q6HP PRN; Protocol PRN Reason: Per Pain Protocol/Fever > 101 Last Admin: 08/22/21 19:11 Dose: 650 mg Documented by: Albuterol/Ipratropium (Ipratropium/Albuterol 3 Ml Ampul.Neb) 3 ml NEB Q4HRT PRN PRN Reason: Wheezing Ceftriaxone Sodium (Ceftriaxone 1 Gm Vial) 1 gm IV Q24H [facility] Last Admin: 08/22/21 08:58 Dose: 1 gm Documented by: Docusate Sodium (Docusate Sodium 100 Mg Capsule) 100 mg PO BID [facility] Last Admin: 08/22/21 19:13 Dose: Not Given Documented by: Doxazosin Mesylate (Doxazosin 1 Mg Tablet) 1 mg PO HS [facility] Last Admin: 08/22/21 19:14 Dose: 1 mg Documented by: Fentanyl (Fentanyl 100 Mcg Patch) 100 mcg TOPICAL Q72H [facility] Last Admin: 08/21/21 10:58 Dose: 100 mcg Documented by: Finasteride (Finasteride 5 Mg Tablet) 5 mg PO DAILY [facility] Last Admin: 08/22/21 08:50 Dose: 5 mg Documented by: Guaifenesin (Guaifenesin/Dextromethorphan Oral Dary) 10 ml PO Q4HP PRN PRN Reason: Cough Nortriptyline HCl (Nortriptyline 10 Mg Capsule) 10 mg PO HS [facility] Last Admin: 08/22/21 19:15 Dose: 10 mg Documented by: Ondansetron HCl (Ondansetron 4 Mg/2 Ml Vial) 4 mg IV Q6HP PRN PRN Reason: Nausea And Vomiting Oseltamivir Phosphate (Oseltamivir Phosphate 75 Mg Capsule) 75 mg PO BID [facility] Last Admin: 08/22/21 19:15 Dose: 75 mg Documented by: Oxycodone HCl (Oxycodone Hcl 5 Mg Tablet) 20 mg PO QID [facility] Last Admin: 08/22/21 19:10 Dose: 20 mg Documented by: Potassium Chloride (Potassium Chloride 10 Meq Tablet) 10 meq PO DAILY [facility] Last Admin: 08/22/21 08:51 Dose: 10 meq Documented by: Senna (Sennosides 1 Tablet) 2 tab PO [facility] Last Admin: 08/22/21 19:13 Dose: Not Given Documented by: Simvastatin (Simvastatin 20 Mg Tablet) 20 mg PO Q48@2100 [facility] Last Admin: 08/21/21 21:11 Dose: 20 mg Documented by: Sodium Chloride (0.9 % Sodium Chloride 10 Ml Syringe) 10 ml IV Q8 [facility] Last Admin: 08/23/21 04:58 Dose: 10 ml Documented by: Trazodone HCl (Trazodone Hcl 50 Mg Tablet) 50 mg PO HS [facility] Last Admin: 08/22/21 19:13 Dose: 50 mg Documented by: Warfarin Sodium (Warfarin Per Pharmacy) 1 order PO UD [facility] A/P Narrative A/P Narrative: Assessment and plan: # CAP & Influenza B w/associated acute delirium & likely underlying dementia vs MCI: -Covid PCR negative -prn Supplemental oxygen therapy -Tamiflu, Rocephin/Zithromax -Frequent reorientation's and protected sleep #Acute hypoxic respiratory failure: 2/2 above -now on RA #Bacteremia (GPC): ?contaminant -pending identity and repeat BC #h/o Atrial fibrillation: -Held diltiazem in face of bradycardia / soft blood pressure, will restart at lower dose -Continue Coumadin #Bradycardia: was on cardizem 480 daily, currently held, will restart at low dose #RADHA: improved s/p IVF #BPH: Continue Terazosin and finasteride #Anxiety/Depression: DVT prophylaxis: Coumadin per pharmacy CODE StATUS: Full code Time Spent With Patient Time: Total time spent is greater than 50% in coordination of care (as documented) at patient's floor/unit and/or counseling patient: QUALITY Stroke Symptom Onset Unknown: No VTE Deep Vein Thrombosis/Pulmonary Embolism Present on Admission: No
[2021-08-23] MEDS ORDERED: BISMUTH SUBSALICYLATE 15 ML ORAL.SUSP PO PRN (08:55)
[2021-08-23] MEDS ORDERED: MAG HYDROX/AL HYDROX/SIMETH 30 ML ORAL.SUSP PO PRN (08:55)
[2021-08-23] MEDS ORDERED: MAG HYDROX/AL HYDROX/SIMETH 30 ML ORAL.SUSP PO ONE (08:55)
[2021-08-23] MEDS: FINASTERIDE 5 MG TABLET PO SCH (09:26)
[2021-08-23] MEDS: DILTIAZEM 120 MG CAP.XL.24H PO SCH (09:27)
[2021-08-23] MEDS: oxyCODONE HCL 5 MG TABLET PO SCH ×4 (09:27→22:04)
[2021-08-23] MEDS: OSELTAMIVIR PHOSPHATE 75 MG CAPSULE PO SCH ×2 (09:29→22:05)
[2021-08-23] MEDS: DOCUSATE SODIUM 100 MG CAPSULE PO SCH ×2 (09:29→22:03)
[2021-08-23] MEDS: POTASSIUM CHLORIDE 10 MEQ TABLET PO SCH (09:29)
[2021-08-23] MEDS: PANTOPRAZOLE 40 MG PACKET PO SCH (09:29)
[2021-08-23] MEDS: cefTRIAXone 1 GM VIAL IV SCH (10:05)
[2021-08-23] MEDS: traZODone HCL 50 MG TABLET PO SCH (22:03)
[2021-08-23] MEDS: NORTRIPTYLINE 10 MG CAPSULE PO SCH (22:03)
[2021-08-23] MEDS: SENNOSIDES 1 TABLET PO SCH (22:03)
[2021-08-23] MEDS: SIMVASTATIN 20 MG TABLET PO SCH (22:04)
[2021-08-23] MEDS: DOXAZOSIN 1 MG TABLET PO SCH (22:05)
[2021-08-24 06:45] LABS: Prothrombin Time 23.8 sec (11.9-14.5)
[2021-08-24] MEDS: 0.9 % SODIUM CHLORIDE 10 ML SYRINGE IV SCH (07:00)
[2021-08-24] MEDS: PANTOPRAZOLE 40 MG PACKET PO SCH (08:00)
[2021-08-24] MEDS: DOCUSATE SODIUM 100 MG CAPSULE PO SCH (08:26)
[2021-08-24] MEDS: POTASSIUM CHLORIDE 10 MEQ TABLET PO SCH (08:26)
[2021-08-24] MEDS: FINASTERIDE 5 MG TABLET PO SCH (08:26)
[2021-08-24] MEDS: oxyCODONE HCL 5 MG TABLET PO SCH ×2 (08:26→12:03)
[2021-08-24] MEDS: OSELTAMIVIR PHOSPHATE 75 MG CAPSULE PO SCH (08:26)
[2021-08-24] MEDS: cefTRIAXone 1 GM VIAL IV SCH (08:27)
[2021-08-24] MEDS: DILTIAZEM 120 MG CAP.XL.24H PO SCH (08:27)
[2021-08-24] MEDS: fentaNYL 100 MCG PATCH TOPICAL SCH (12:02)
== END 2021-08-24 12:50 | disposition home or self-care (01) | DRG 193 ==
LOC: ED 18:10 → MEDSUR 23:00
PROVIDERS: ADMIT Internal Medicine; ATTEND Internal Medicine